=== PATIENT | female | born 1995 | race Caucasian/White ===

== ENCOUNTER 2020-01-17 00:08 | Day surgery (SDC) | payer MEDICAID, SELFPAY ==
[2020-01-15 12:10] VITALS: BMI 25.7
--- NOTE | 2020-01-15 17:25 | HP_ITS ---
DATE OF SERVICE: 01/17/2020 Surgery is scheduled for January 17, 2020. HISTORY OF PRESENT ILLNESS: The patient is 24-year-old, G1, who would be at about 12-13 weeks gestation based on last menstrual period of October 14. She was diagnosed with a missed on ultrasound about a week ago and has opted for suction D and C. She has had no bleeding control period other than spotting a few weeks after her period and she has no pain, no physical complaints. MEDICAL HISTORY: Scoliosis. MEDICATIONS: None. ALLERGIES: NO KNOWN DRUG ALLERGIES. SURGICAL HISTORY: Negative. SOCIAL HISTORY: Negative for tobacco, alcohol, or drug use. OBSTETRIC HISTORY: G1. Her only is her current . GYNECOLOGIC HISTORY: Negative for abnormal Pap or STD. FAMILY HISTORY: Negative for any genetic disorders. REVIEW OF SYSTEMS: Negative. PHYSICAL EXAMINATION: VITAL SIGNS: She is 5 feet 5 inches, weight is 154 pounds. Blood pressure 115/79. GENERAL: No apparent distress. HEART: Regular rate and rhythm. LUNGS: Clear to auscultation. ABDOMEN: Soft, nontender, nondistended. EXTREMITIES: Nontender with no edema. DIAGNOSTIC DATA: Ultrasound shows 10-week irregular gestational sac with no fetus. ASSESSMENT AND PLAN: G1 with an embryonic gestation or missed . She has opted and signed consent for suction dilation and curettage after the risks, benefits, complications, and alternatives were discussed. 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 We discussed the possible implications for future . We also do not know her blood type, so we need to check that the day of surgery and give RhoGAM if she is Rh negative. D I MT: Priya
[2020-01-17] MEDS: LACTATED RINGERS 1,000 ML 30 ML IV CONT ×2 (06:30→09:01)
[2020-01-17 07:00] VITALS: BP 108/68; PULSE 78; RESP 18; TEMP 37.1; O2SAT 100
--- NOTE | 2020-01-17 07:20 | WPDANESEPPF ---
Anes - Initial Pre Proc Eval Procedure: Operation Date: 01/17/20 08:15 Proposed Procedures p Suction Dilatation and Curettage - Kim Harris MD The patient is 24-year-old, G1, who would be at about 12-13 weeks gestation based on last menstrual period of October 14. She was diagnosed with a missed on ultrasound about a week ago and has opted for suction D and C. Date/Time: 01/17/20 07:20 Surgeon: Kim Harris MD Pre Op Diagnosis: missed AB Patient Data Age: 24 Gender: F Height: 1.65 m Weight: 69.7 kg Last Vital Signs Temp 37.1 C 01/17/20 07:00 Pulse 78 01/17/20 07:00 Resp 18 01/17/20 07:00 BP 108/68 01/17/20 07:00 Pulse Ox 100 01/17/20 07:00 Allergies Allergy/AdvReac Type Severity Reaction Status Date / Time No Known Allergies Allergy Verified 01/17/20 07:03 Home Medications Medication Instructions Recorded Confirmed Type No Home Medications 01/15/20 01/17/20 History Patient hx anesthesia problems: none Family hx anesthesia problems: none [facility], [facility] Past Medical History Medical History (Updated 01/17/20 @ 07:21 by Toño Vyas MD) Scoliosis Anes - Eval Final PreProcedure Day of Procedure 01/17/20 07:20 Patient weight: overweight Heart: regular rate and rhythm Lungs: clear to auscultation and normal air movement Airway: Mallampati scale class II Neurological: alert and oriented Last oral intake: >/= 8 hours ASA classification: II Emergent: no Anesthetic plan: proceed Anesthesia type and monitoring: general GIVS Informed Consent: The patient's anesthetic plan and its attendant risks and benefits were discussed with the patient/family/POA. Questions were solicited and answers provided to the satisfaction of the patient/family/POA.
--- NOTE | 2020-01-17 07:39 | WPDHPUPDATE1 ---
History and Physical Update Update Date/Time: 01/17/20 07:39 History and Physical has been reviewed, including an updated exam of the patient. There are NO changes in the patient's condition. Risks, benefits, and alternatives have been discussed and questions answered. Patient agrees to proceed with procedure.
--- NOTE | 2020-01-17 08:19 | SUR.OPER ---
ebl 100ml
[2020-01-17 08:31] VITALS: BP 104/64; PULSE 70; RESP 14; O2SAT 100
--- NOTE | 2020-01-17 08:31 | PM.OP ---
Procedure Note - Brief Procedure Note - Brief Date of procedure: 01/17/20 Pre-op diagnosis: missed AB Post-op diagnosis: same Procedure performed: Suction D&C Anesthesia: MAC Surgeon: Kim Harris MD Estimated blood loss (mL): 100 Drains: No Packing: No Pathology: yes Complications: No immediate complications Condition: stable Disposition: PACU Findings: Moderate amounts POCs
[2020-01-17 09:00] VITALS: BP 108/65; PULSE 68; O2SAT 100
[2020-01-17 09:30] VITALS: BP 120/66; PULSE 71
--- NOTE | 2020-01-17 12:28 | OP_ITS ---
DATE OF PROCEDURE: 01/17/2020 PREOPERATIVE DIAGNOSIS: Missed . POSTOPERATIVE DIAGNOSIS: Missed . PROCEDURE PERFORMED: Suction dilation and curettage. SURGEON: Kim Harris M.D. ANESTHESIA: Conscious sedation. ESTIMATED BLOOD LOSS: 100 mL. COMPLICATIONS: None. FINDINGS: Moderate amounts of products of conception. INDICATIONS: A 24-year-old, G1, who would be about 13 weeks' gestation based on last menstrual period. She was diagnosed with missed on ultrasound a week or so ago and was counseled about options. She opted and signed consent for suction dilation and curettage after the risks, benefits, complications, and alternatives were discussed. DESCRIPTION OF PROCEDURE: For the procedure, she was taken to the operating room where she was sedated and placed in the dorsal lithotomy position. A speculum was placed in the vagina. The anterior lip of the cervix was grasped with a single-tooth tenaculum. The cervix was dilated. At one point, the tenaculum did tear through the anterior lip of the cervix, so it was replaced with an Allis clamp. She was dilated up to a 10 Hegar dilator, so a #9 curved suction curette was used to evacuate the contents of the uterus. Sharp curettage was performed with a small amount of tissue still obtained, so another couple passes were made with the suction curette. Another gentle curettage was done with a metal curette with no further tissue obtained and the endometrium felt gritty, so one last pass was made with the suction curette with minimal blood and no tissue obtained. The Allis clamp was removed from the anterior lip of the cervix. The laceration site was bleeding slightly, so pressure was held with ring forceps. Cervix was still bleeding slightly, so one [id number]-it-[id number] 2-0 Vicryl suture was placed and then excellent hemostasis was obtained. All instruments were removed from the vagina. She tolerated the procedure well. Sponge, lap, needle, and instrument counts were correct x2 and she was taken to the recovery room in stable condition. D I MT: Priya
== END 2020-01-17 09:52 | disposition home or self-care (01) ==
PROVIDERS: Visit Provider Obstetrics & Gynecology
PROC: (CPT 59820; principal; 2020-01-17 08:15)
DX: O02.1 Missed abortion (principal)
CPT/HCPCS: 59820; 36415; 85461; 88305; A9270; J0131; J1100; J1885; J2250; J2405; J2704; J3010; J7120

== ENCOUNTER 2021-02-09 09:50 | Outpatient (RCR) | payer OTHER, SELFPAY ==
[2021-02-09 10:48] VITALS: BP 108/73; PULSE 102
== END 2021-02-27 07:52 | disposition home or self-care (01) ==
LOC: ANHOBOP 09:50
PROVIDERS: PCP Advanced Practice Midwife; Visit Provider Obstetrics & Gynecology
DX: O24.419 Gestational diabetes mellitus in pregnancy, unspecified control (principal); Z3A.36 36 weeks gestation of pregnancy
CPT/HCPCS: 59025

== ENCOUNTER 2021-02-25 12:12 | Outpatient (CLI) | payer OTHER, SELFPAY ==
[2021-02-25 12:35] LABS: Hematocrit 36.4 % (37.0-47.0); Mean Corpuscular Volume 94.1 fl (80-100); Mean Platelet Volume 11.4 fl (7.4-10.4); Platelet Count Result 190 k/mm3 (150-375); Red Blood Count 3.87 M/mm3 (4.2-5.4); Red Cell Distribution Width 13.8 % (11.5-14.5); White Blood Count 7.1 K/mm3 (4.5-10.0)
[2021-02-26 06:49] LABS: Rapid Plasma Reagin Non-Reactive (NonReactive)
== END 2021-02-25 12:13 | disposition home or self-care (01) ==
PROVIDERS: Visit Provider Obstetrics & Gynecology
DX: O32.1XX0 Maternal care for breech presentation, not applicable or unspecified (principal); Z3A.00 Weeks of gestation of pregnancy not specified
CPT/HCPCS: 36415; 85027; 86592; 86850; 86900; 86901

== ENCOUNTER 2021-02-26 11:32 | Inpatient (IN) | payer OTHER, SELFPAY ==
--- NOTE | 2021-02-11 14:56 | PC.NURSE ---
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
[2021-02-26] VITALS (55 sets, daily range): BP systolic 97–127; BP diastolic 53–88; PULSE 57–93; RESP 16–18; TEMP 36.1–36.6; O2SAT 96–100; BMI 30.8
[2021-02-26 12:47] LABS: Glucose Point of Care 91 mg/dl (65-105)
[2021-02-26] MEDS: LACTATED RINGERS 1,000 ML 125 ML IV CONT (12:56)
--- NOTE | 2021-02-26 13:09 | LDADM ---
This patient, Azeb Grace, was admitted to [facility] Post [facility] on 02/26/21 at 11:32. Plans for section, pain management and were discussed with patient. Patient/family oriented to hospital policies and general routines including ID bracelet, bed and alarms, visiting hours, pain management, procedures, bathroom and other care routines, personal items, smoking policy, room service/diet and guest tray routines, infant security routines, call light and visiting hours. Patient/Family are encouraged to report perceived risks to care and to ask questions if they do not understand what they are told or what they should do. See OBIX for further documentation.
[2021-02-26] MEDS: LACTATED RINGERS 1,000 ML 999 ML IV CONT (13:15)
--- NOTE | 2021-02-26 13:18 | PN_ITS ---
This report was moved to the correct visit, [id number] on 02/26/21. Original report was signed by Toño Vyas MD on 02/26/211319. Anes - Initial Pre Proc Eval Procedure: Operation Date: 02/26/21 12:00 Proposed Procedures p Repeat Section - Nicolle Adam MD Date/Time: 02/26/21 13:18 Surgeon: Nicolle Adam MD Pre Op Diagnosis: prior csection, breech Patient Data Age: 26 Gender: F Height: Weight: Allergies Allergy/AdvReac Type Severity Reaction Status Date / Time No Known Allergies Allergy Verified 01/17/20 07:03 Home Medications Medication Instructions Recorded Confirmed Type hydrocodone-acetaminophen [[place]] 1 tablet PO Q4H PRN #10 tablet 01/17/20 Rx ibuprofen 600 mg PO Q6H PRN #60 tablet 01/17/20 Rx Patient hx anesthesia problems: none Family hx anesthesia problems: none PMFSH Past Medical History Medical History (Updated 01/17/20 @ 07:21 by Toño Vyas MD) Scoliosis Anes - Eval Final PreProcedure Day of Procedure 02/26/21 13:18 Patient weight: overweight Heart: regular rate and rhythm Lungs: clear to auscultation and normal air movement Airway: Mallampati scale class II Neurological: alert and oriented Last oral intake: >/= 8 hours ASA classification: II Emergent: no Anesthetic plan: proceed Anesthesia type and monitoring: regional spinal Informed Consent: The patient's anesthetic plan and its attendant risks and benefits were discussed with the patient/family/POA. Questions were solicited and answers provided to the satisfaction of the patient/family/POA. This dictation may have been done utilizing a voice recognition system. Attempts have been made to correct errors. However, there may be uncorrected grammatical, spelling, and recognition errors present. Report Initialized date/time: Toño Vyas MD 02/26/211319 Electronically signed by: Toño Vyas MD 02/26/211319 [facility]
--- NOTE | 2021-02-26 13:25 | HP_ITS ---
This report was moved to the correct visit, [id number] on 02/26/21. Original report was signed by Nicolle Adam MD on 02/26/21 1326. History and Physical Update Update Date/Time: 02/26/21 13:25 History and Physical has been reviewed, including an updated exam of the patient. There are NO changes in the patient's condition. Risks, benefits, and alternatives have been discussed and questions answered. Patient agrees to proceed with procedure. This dictation may have been done utilizing a voice recognition system. Attempts have been made to correct errors. However, there may be uncorrected grammatical, spelling, and recognition errors present. Report Initialized date/time: Nicolle Adam MD 02/26/21 / 1326 Electronically signed by: Nicolle Adam MD 02/26/21 1326 [facility]
--- NOTE | 2021-02-26 13:26 | HP_ITS ---
This report was moved to the correct visit, [id number] on 02/26/21. Original report was signed by Nicolle Adam MD on 02/26/21 1330. H&P: HPI History of Present Illness Date/Time: 02/26/21 13:26 this patient is a 26-year-old 2 para 0 at term with a breech position and infant. We agreed to perform delivery. The patient understands the procedure. She understands the risks. She understands that injuries may occur that result in hospitalization, more surgery, severe illness. She understands risk there is infection and hemorrhage. She denies any nausea, vomiting, fever, chills. She denies any headache or blurry vision. She denies any chest pain shortness of breath. She denies any contractions, loss of fluid, vaginal bleeding Chief Complaint: Breech, term Review of Systems Constitutional: Constitutional: Reports no additional constitutional complaints, Denies fatigue, Denies headache(s), Denies lethargy and Denies weakness Eyes: Eyes: Reports no additional eye complaints, Denies blurry vision and Denies photophobia ENT: Reports as per HPI, Denies headache(s) and Denies neck pain Cardiovascular: Cardiovascular: Denies chest pain, Denies diaphoresis, Denies leg edema, Denies palpitations and Denies dyspnea Respiratory: Respiratory: Denies hemoptysis, Denies dyspnea and Denies wheezing Gastrointestinal: Gastrointestinal: Denies abdominal pain, Denies melena, Denies bloating, Denies hematochezia, Denies nausea and Denies vomiting Genitourinary: Genitourinary: Reports no additional female genitourinary complaints Musculoskeletal: Musculoskeletal: Denies joint swelling, Denies neck pain, Denies numbness and Denies stiffness Neurologic: Denies Abnormal speech present, Denies confusion, Denies headache(s), Denies numbness and Denies weakness Psychiatric: Psychiatric: Denies anxiety, Denies confusion, Denies depression, Denies homicidal ideation and Denies suicidal ideation Endocrine: Endocrine: Denies fatigue and Denies palpitations Allergic/Immunologic: Allergic/Immunologic: Denies wheezing PMFSH Past Medical History Medical History (Updated 02/26/21 @ 13:29 by Nicolle Adam MD) Scoliosis Meds Home Medications and Allergies Home Medications Medication Instructions Recorded Confirmed Type hydrocodone-acetaminophen [[place]] 1 tablet PO Q4H PRN #10 tablet 01/17/20 Rx ibuprofen 600 mg PO Q6H PRN #60 tablet 01/17/20 Rx Allergies Allergy/AdvReac Type Severity Reaction Status Date / Time No Known Allergies Allergy Verified 01/17/20 07:03 Exam Const: General: healthy appearing, comfortable and no acute distress; No confusion Orientation/consciousness: No confusion Eyes: Direct Ophthalmoscopy: No photophobia Resp: Auscultation: clear to auscultation bilaterally, no rales, no rhonchi and no wheezes Cardio: Rate: regular rate Heart sounds: no click, no murmurs and no rubs GI: Inspection: non-distended GI Palp: No abdominal tenderness Auscultation: normal bowel sounds Neuro: General: No confusion Speech: No Abnormal speech present Extrem: General: normal to inspection, no pedal edema and no calf tenderness Assessment and Plan Assessment and plan (1) Term : Code(s): Z34.90 - Encounter for supervision of normal , unspecified, unspecified trimester Status: Acute (2) Breech presentation: Code(s): O32.1XX0 - Maternal care for breech presentation, not applicable or unspecified Status: Acute Assessment and Plan: This patient is a 26-year-old 2 p
[2021-02-26] MEDS: ceFAZolin 2 GM/D5W 50 ML 2 GM/50 ML BAG IVPB (14:49)
[2021-02-26] MEDS: KETOROLAC 30 MG/ML VIAL (*BKC) IV PUSH ×2 (15:45→22:46)
--- NOTE | 2021-02-26 15:46 | P.OP_ITS ---
Procedure Note - Detailed Date of Procedure 02/26/21 Pre-op Diagnosis Term . Breech Post-op Diagnosis same Procedure Performed Low-transverse section Surgeon Nicolle Adam MD Anesthesia spinal Findings Breech Infant, Normal gestational maternal anatomy, average size , normal Apgars. Description of Procedure The patient was taken the operating room. She was prepped and draped in dorsal supine position with a leftward tilt. This was done after spinal anesthetic was applied. A low-transverse skin incision was made and carried down till of the fascia with the knife. The fascial incision was made with the knife. The fascial incision was extended laterally with Dupont scissors. The fascia was tented upward superiorly and inferiorly the rectus muscles were dissected off bluntly. The rectus muscles were the midline. The preperitoneal fat and peritoneum were dissected open bluntly at the superior aspect of the rectus muscles. The peritoneal incision was extended superior and inferior with good position of bladder. The uterine incision was made with a scalpel down to the level of the amniotic cavity. The amniotic cavity was entered bluntly. The infant was delivered. The cord was clamped and cut and t he was handed off to waiting pediatric staff. Cord bloods were obtained. The placenta was removed manually. The uterus was exteriorized. The uterus was cleared of all clots, debris and membranes. The uterus was closed in 0 Vicryl running lock fashion. An imbricating over a was placed along the incision line as well. The uterus was returned to the abdomen. The gutters were cleared of all clots and debris. The fascia was closed with 0 Vicryl running fashion. The subcutaneous tissue was irrigated pinpoint bleeders were cauterized. The skin was closed with subcuticular absorbable nicolas. The skin incision line was covered with glue. The patient tolerated the procedure well. She has taken recovery room in stable condition. Sponge lap and needle counts were correct x2. Complications No immediate complications Condition stable Disposition PACU
[2021-02-26] MEDS: OXYTOCIN 30 UNITS/NS 500 ML 30 UNITS/500 ML BAG 125 UNITS IV CONT (17:00)
[2021-02-26] MEDS: ONDANSETRON INJ 4 MG/2 ML VIAL IV PUSH (18:21)
[2021-02-26] MEDS: diphenhydrAMINE HCl INJ 50 MG/ML VIAL 12.5 MG IV PUSH (20:14)
[2021-02-26] MEDS: KCL 20 MEQ/D5/0.45% SOD CHL 1,000 ML 125 ML IV CONT (22:47)
[2021-02-27 00:48] VITALS: BP 121/70; PULSE 85; RESP 18; TEMP 36.6; O2SAT 98
[2021-02-27 04:20] VITALS: BP 108/73; PULSE 73; RESP 18; TEMP 36.4; O2SAT 100
[2021-02-27 04:55] LABS: Basophils Percent Auto 0.2 % (0.2-1.2); Eosinophils Percent Auto 0.4 % (0-4.4); Hematocrit 31.7 % (37.0-47.0); Hemoglobin 10.3 g/dL (12.0-15.0); Immature Granulocyte Absolute 0.03 K/mm3 (0.00-0.031); Immature Granulocyte Percent A 0.3 % (0-0.5); Lymphocytes Absolute Auto 1.11 K/mm3 (0.9-3.2); Lymphocytes Percent Auto 12.1 % (18.3-44.2); Mean Corpuscular HGB Conc 32.5 g/dl (32-36); Mean Corpuscular Hemoglobin 30.7 pg (26-34); Mean Corpuscular Volume 94.6 fl (80-100); Mean Platelet Volume 11.8 fl (7.4-10.4); Monocytes Absolute Auto 0.5 K/mm3 (0.1-0.6); Monocytes Percent Auto 5.8 % (2.6-8.5); Neutrophils Absolute Auto 7.5 K/mm3 (1.3-6.7); Neutrophils Percent Auto 81.2 % (45.5-73.1); Platelet Count Result 164 k/mm3 (150-375); Red Blood Count 3.35 M/mm3 (4.2-5.4); Red Cell Distribution Width 13.7 % (11.5-14.5); White Blood Count 9.2 K/mm3 (4.5-10.0)
[2021-02-27] MEDS: diphenhydrAMINE HCl INJ 50 MG/ML VIAL 12.5 MG IV PUSH (05:25)
[2021-02-27] MEDS: KETOROLAC 30 MG/ML VIAL (*BKC) IV PUSH (05:25)
[2021-02-27] MEDS: SIMETHICONE 80 MG TAB.CHEW PO ×4 (05:25→22:00)
--- NOTE | 2021-02-27 05:25 | PC.NURSE ---
this nurse administered medications at 0525 during Medication Administration Error: MIS is down : 30 mg Keterolac IV Push for pain rated 12/20 12.5 mg Diphenhydramine for itching--second dose of two 80 mg Simethicone for gas
--- NOTE | 2021-02-27 05:49 | PC.NURSE ---
Medication Administration charting is back online, and I have charted the medications I administered at 0597
--- NOTE | 2021-02-27 07:37 | PM.OBPNVD ---
OB - PN: Subj Subjective Date/time seen: 02/27/21 07:37 Patient comments: no complaints baby status: doing well OB - PN: Obj Data Labs CBC & Chem 7: 02/27/21 04:28 Labs: Laboratory Results - last 24 hr 02/26/21 02/27/21 12:35 04:28 WBC 9.2 RBC 3.35 L Hgb 10.3 L Hct 31.7 L MCV 94.6 MCH 30.7 MCHC 32.5 RDW 13.7 Plt Count 164 MPV 11.8 H Immature Gran % (Auto) 0.3 Neut % (Auto) 81.2 H Lymph % (Auto) 12.1 L [place] % (Auto) 5.8 Eos % (Auto) 0.4 Baso % (Auto) 0.2 Lymph # (Auto) 1.11 [place] # (Auto) 0.5 Eos # (Auto) 0.0 Baso # (Auto) 0.0 Abs Immat Gran (auto) 0.03 Absolute Neuts (auto) 7.5 H Absolute Nucleated RBC 0.0 Nucleated RBC % 0.0 POC Capillary Glucose 91 OB - PN A/P Plan day: 1 Plan: routine care Time Spent With Patient Time: Total time spent is greater than 50% in coordination of care (as documented) at patient's floor/unit and/or counseling patient: Review of Systems Review of Systems: All systems reviewed & are unremarkable except as noted in HPI and below Exam Narrative: Exam Narrative: incision CDI Const: General: cooperative Nutritional Appearance: average body habitus Orientation/consciousness: patient oriented x3 Psych: Affect: normal affect Attitude: cooperative Thought process: Normal thought process present Thought content: Yes Normal thought content present Insight: Good insight present (Psych) Judgement: Good judgement present (Psych)
[2021-02-27 08:10] VITALS: BP 106/71; PULSE 81; RESP 16; TEMP 36.9; O2SAT 100
[2021-02-27] MEDS: DOCUSATE SODIUM 100 MG CAPSULE PO ×2 (08:34→17:38)
[2021-02-27] MEDS: MULTIVIT/MIN/PREN/FOL AC/IRON TABLET 1 TAB PO (08:34)
[2021-02-27] MEDS: HYDROcodone/acetaminophen (*CRX) 5-325 MG TABLET 1 TAB PO ×3 (08:35→17:38)
--- NOTE | 2021-02-27 08:56 | WPDANLDPN2 ---
Anes-Prog Note L&D Date/Time: 02/27/21 08:56 Comfortable throughout: section Neuraxial method: spinal Epidural/Spinal procedure site: clean & non-tender Neuro status: Neuro function grossly intact. Cardiovascular status: normal Respiratory status: normal Airway patency: baseline Mental status: baseline Post-Op hydration status: normal Vital Signs: Last Vital Signs Temp 36.4 C 02/27/21 04:20 Pulse 73 02/27/21 04:20 Resp 18 02/27/21 04:20 BP 108/73 02/27/21 04:20 Pulse Ox 100 02/27/21 04:20 Pain score (VAS): 0 I/O: Intake & Output 02/26/21 02/27/21 02/27/21 23:59 07:59 15:59 Intake Total 820 3240 Output Total 1050 2700 Balance -230 540 Post-procedural complaints: none Patient feedback: Patient satisfied with anesthetic care.
--- NOTE | 2021-02-27 08:56 | WPDANLDNPN2 ---
Anes-Prog Note L&D-Neuraxial Date/Time: 02/27/21 08:56 Neuraxial medications: intrathecal PF morphine Opiod-related complaints: none Patient feedback: Patient satisfied with post-operative pain management.
[2021-02-27 12:02] VITALS: BP 107/69; PULSE 87; RESP 16; TEMP 36.6; O2SAT 99
[2021-02-27] MEDS: IBUPROFEN 600 MG TABLET PO ×2 (14:23→22:00)
[2021-02-27 20:28] VITALS: BP 97/61; PULSE 82; RESP 16; TEMP 36.6; O2SAT 99
[2021-02-27] MEDS: HYDROcodone/acetaminophen (*CRX) 10-325 MG TABLET 1 TAB PO (22:00)
[2021-02-28] MEDS: HYDROcodone/acetaminophen (*CRX) 10-325 MG TABLET 1 TAB PO (00:41)
[2021-02-28] MEDS: HYDROcodone/acetaminophen (*CRX) 5-325 MG TABLET 1 TAB PO ×2 (03:44→10:15)
[2021-02-28] MEDS: SIMETHICONE 80 MG TAB.CHEW PO (03:44)
[2021-02-28] MEDS: IBUPROFEN 600 MG TABLET PO ×2 (03:45→10:16)
[2021-02-28 08:00] VITALS: BP 108/71; BP 112/75; PULSE 73; PULSE 89; RESP 18; TEMP 36.8; TEMP 36.9; O2SAT 98
--- NOTE | 2021-02-28 09:46 | PM.OBPNVD ---
OB - PN: Subj Subjective Date/time seen: 02/28/21 09:46 Patient comments: no complaints, pain well controlled, tolerating diet and flatus present baby status: doing well OB - PN: Obj Data Labs CBC & Chem 7: 02/27/21 04:28 OB - PN A/P Plan day: 2 Plan: routine care and discharge home (Follow up in 1 week) Time Spent With Patient Time: Total time spent is greater than 50% in coordination of care (as documented) at patient's floor/unit and/or counseling patient: Time with patient: less than 15 minutes Review of Systems Review of Systems: All systems reviewed & are unremarkable except as noted in HPI and below Exam Narrative: Exam Narrative: Fundus firm. Vaginal flow controlled. Incision dry and intact. Negative homans. No redness, warmth, or pain of lower ext. Const: General: comfortable Chest: Breast/axilla inspection: normal inspection of the breasts Resp: Effort & Inspection: normal respiratory effort Auscultation: clear to auscultation bilaterally Cardio: Rate: regular rate GI: GI Palp: Yes Soft to palpation Psych: Appearance: grossly normal Affect: normal affect Attitude: cooperative Thought content: Yes Normal thought content present Judgement: Good judgement present (Psych)
[2021-02-28] MEDS: DOCUSATE SODIUM 100 MG CAPSULE PO (10:15)
[2021-02-28] MEDS: MULTIVIT/MIN/PREN/FOL AC/IRON TABLET 1 TAB PO (10:16)
[2021-03-02 09:06] VITALS: BP 115/78; PULSE 88; RESP 20; TEMP 37.1; O2SAT 100
--- NOTE | 2021-03-22 18:56 | PM.OBDSVD ---
DS: Admitting Diagnosis Admitting Diagnosis Admitting Diagnosis: term , breech DS: Discharge Diagnosis Discharge Diagnosis (1) Term : Code(s): Z34.90 - Encounter for supervision of normal , unspecified, unspecified trimester Status: Acute (2) Breech presentation: Code(s): O32.1XX0 - Maternal care for breech presentation, not applicable or unspecified Status: Acute OB - DS: Summary OB Procedures : None OB Procedures Intrapartum: OB Procedures: : None Peripartum Data Procedures: Procedures Operation Date: 02/26/21 13:30 Actual Procedure Side Surgeon p Section Nicolle Adam MD Time Spent with Patient Time attestation: Total time spent providing and/or coordinating discharge services: Discharge Plan Discharge Attending physician on discharge: Nicolle Adam Consulting providers: Asha Kowalski ; Sinai Lea ; Toño Vyas Discharging Clinician: Sinai Lea Patient Disposition: Home, Self-Care Activity: no driving and pelvic rest Diet: as tolerated Wound Care Instructions: follow printed instructions Discharge Instructions: Education: Mom and Baby Guide Given to: Mother Follow-Up: Call your delivering provider's office for an appointment to be seen in: Call for appointment Mom and baby should come to the [facility] for the follow-up appointment. Appointment Date/Time: March 02, 2021 at 9:00 am What to expect at your follow-up visit: Physical Assessment Call [phone] if you are unable to keep your appointment time. BREAST CARE: * Wear a snug supportive bra. * For engorgement discomfort: Breast Feeding: * Apply warm moist washcloths * Express milk as needed to relieve engorgement * Wear loose clothing * For sore nipples: * Identify correct latch-on * Apply warm moist washcloths before and after nursing * Air dry nipples after nursing * May apply Lansinoh cream to nipples ABDOMINAL INCISION: * Allow incision to air dry * Do NOT use lotions for powders on your incision * When showering, allow soap and water to run over the incision, but do not wash incision PERINEAL CARE: * Until bleeding stops, use your rah bottle after urinating * Change your pad frequently throughout the day * No tub baths until seen by your physician - You may shower ACTIVITY: * Rest as much as possible. * Do not exercise or lift anything heavier than your baby (such as laundry or other children.) * Avoid stairs or driving as much as possible. * Do not put anything into the vagina. No douching, tampons, or sexual activity until seen by physician. NOTIFY PHYSICIAN IF YOU HAVE ANY QUESTIONS OR IF ANY OF THE FOLLOWING SYMPTOMS OCCUR: * If your incision becomes red, swollen, or more painful than what you have experienced in the hospital. * If your vaginal bleeding becomes foul smelling. * If your vaginal bleeding becomes more heavy than a period or if your bleeding changes from pink to bright red. However, you may pass an occasional walnut-sized clot once or twice for the first week . * If you experience a sharp, shooting pain in you calves. * If you discover a hard, reddened area on your breast or if you experience flu-like symptoms. DIET: * Eat regular, well-balanced meals. * Drink plenty of fluids daily. If , drink to thirst. Patient Instructions: Antibiotic Form Stand Alone Forms: General Discharge Information Follow-up/Referrals: Nicolle Adam MD [Physician] - Call for Appointment Discharge Medications: New docusate sodium 100 mg Capsule 100 mg PO BID Qty: 30 RF: 0 ibuprofen 600 mg Tablet 600 mg PO Q6H PRN (Reason: Cramping) Qty: 20 RF: 0 hydrocodone-acetaminophen 5-325 mg tablet 1 tablet PO Q4H PRN (Reason: pain) Qty: 20 RF: 0 Continued prenat.vits,jeffrey,[id number] Tab
== END 2021-02-28 14:07 | disposition home or self-care (01) | DRG 540 ==
LOC: ANHOBPP 11:37 → ANHLDR 16:59 → ANHOB2 18:34
PROVIDERS: Admitting Provider Obstetrics & Gynecology; Visit Provider Obstetrics & Gynecology
PROC: 10D00Z1 Extraction of Products of Conception, Low, Open Approach (ICD-10-PCS; CPT 59514; principal; 2021-02-26 13:30)
DX: O32.1XX0 Maternal care for breech presentation, not applicable or unspecified (principal); O24.429 Gestational diabetes mellitus in childbirth, unspecified control; O34.03 Maternal care for unspecified congenital malformation of uterus, third trimester; Q51.3 Bicornate uterus; Z3A.39 39 weeks gestation of pregnancy; Z37.0 Single live birth
CPT/HCPCS: 36415; 82948; 85025; A9270; J0131; J0690; J1200; J1885; J2274; J2370; J2405; J2590; J3480; J7120

== ENCOUNTER 2022-04-13 11:57 | Outpatient (RCR) | payer OTHER, SELFPAY ==
[2022-02-08 08:34] VITALS: BP 107/74; PULSE 107
--- NOTE | ~2022-04-13 | US_ITS ---
EXAMINATION: US OB limited w BPP DATE: 04/13/2022 13:45 INDICATION: Nonreactive nonstress test during third trimester . TECHNIQUE: Real-time pelvic ultrasound was performed. The interpreting radiologist was not present fo r the study. COMPARISON: None. FINDINGS: There is a single living fetus in vertex presentation. The placenta is anterior. heart rate is 138 beats per minute (bpm). Mildly increased amniotic fluid index of 21.1 cm (5th%-95%: 7.0-19.4 cm at 41 weeks estimated gestational age). Biophysical profile performed by the technologist: breathing (30 sec sustained breathing in 30 minutes): 2 out of 2 movement (3 gross body movements in 30 minutes): 2 out of 2 tone (one episode of azhjdoj-afqjcbdgh-bvpdpjx limb movement): 2 out of 2 Amniotic fluid pocket (2 cm): 2 out of 2 Total score: 8 out of 8 IMPRESSION: 1. Single living fetus in vertex presentation with heart rate of 138 bpm. 2. Biophysical profile 8 out of 8. Line 3. Mildly increased amniotic fluid index of 21.1 cm. Reviewed, dictated and finalized at location A.
== END 2022-05-09 23:59 | disposition home or self-care (01) ==
LOC: ANHOBOP 11:57
PROVIDERS: Visit Provider Obstetrics & Gynecology
DX: O36.5930 Maternal care for other known or suspected poor fetal growth, third trimester, not applicable or unspecified (principal); O43.193 Other malformation of placenta, third trimester; Z3A.32 32 weeks gestation of pregnancy
CPT/HCPCS: 59025; 76815; 76819

== ENCOUNTER 2022-04-15 17:50 | Inpatient (IN) | payer OTHER, SELFPAY ==
--- NOTE | 2022-03-18 14:27 | PC.NURSE ---
Verified with OR schedule and Patient--C?S on 03/25/22 at 0730 Patient given requisition for pre-op labs on 03/24/22
[2022-04-15] VITALS (31 sets, daily range): BP systolic 98–125; BP diastolic 54–83; PULSE 80–119; RESP 12–18; TEMP 36.4–36.9; O2SAT 97–100; BMI 33.7
--- OUTSIDE RECORDS SUMMARY | 2022-04-15 18:00 | XMS_ITS | Encounter Summary ---
:1995 Author Reason for Visit None recorded. Assessment and Plan 1. Post-term ? non-stress test Discussion Note: None recorded.Patient educational handouts: No information available. Plan of Care Reminders Provider Appointments None recorded. ? ? Lab None recorded. ? ? Referral None recorded. ? ? Procedures None recorded. ? ? Surgeries None recorded. ? ? Imaging Non-stress Test 04/13/2022 [place] Medications Notes: Haven't started prenatals yet 1 Medications Administered None recorded. Vitals None recorded. Results Lab Results None recorded. Allergies Code Code System Name Reaction Severity Onset NKDA ? ? ? Problems Name Status Onset Date Source ? Active 10/01/2021 ? Group B Streptococcus Carrier Active 03/08/2022 ? Procedures Date Name Performed by ? 02/26/2021 Section (Surg) Information not available 01/17/2020 Dilation and Curettage Information not a vailable Notes: MAB 03/18/2022 Non-stress Test [place] [address] [place] [address] ([address]) 04/08/2022 Non-stress Test [place] [address] [place] [address] ([address]) 04/13/2022 Non-stress Test [place] Lori Mascorro
--- OUTSIDE RECORDS SUMMARY | 2022-04-15 18:00 | XMS_ITS ---
:1995 Author Care Team Providers Name Role Phone Manny Adam Primary Care Provider Unavailable Allergies Code Code System Name Reaction Severity Status Onset NKDA ? Medications Name Status Start Date Stop Date ? ? docusate sodium 100 mg capsule Completed ? 1 TAKE 1 CAPSULE BY MOUTH TWICE DAILY Erygel 2 % topical Completed ? 01/10/2020 APPLY A THIN LAYER TO THE AFFECTED AREA (S) BY TOPICAL ROUTE 2 TIMES PER DAY IN THE MORNING AND EVENING hydrocodone 5 mg-acetaminophen 325 mg tablet Completed ? 03/25/2021 TAKE 1 TABLET BY MOUTH EVERY 4 HOURS NEEDED FOR PAIN ibuprofen Completed ? 01/15/2020 ibuprofen 600 mg tablet Completed ? 03/25/20 TAKE 1 TABLET BY MOUTH EVERY 6 HOURS NEEDED FOR CRAMPING OneTouch Delica Plus Lancet 30 gauge Completed ? 03/25/2021 USE 4 LANCETS PER DAY TO TEST BLOOD SUGAR OneTouch Verio Flex Meter Completed ? 2020 DIRECTED OneTouch Verio test strips Completed ? 03/25 Completed ? 09/10/2021 Notes: Haven't started prenatals yet 1 Problems Name Status Onset Date Source ? Unknown 08/25/2020 ? Active 10/01/2021 ? Group B Streptococcus Carrier Active 03/08/2022 ? Procedures Date Name Performed by ? 02/26/2021 Section (Surg) Information not available 01/17/2020 Dilation and Curettage Information not a vailable Notes: MAB 01/10/2020 US, Obstetric, 1St Trimester [place]
--- OUTSIDE RECORDS SUMMARY | 2022-04-15 18:00 | XMS_ITS | Encounter Summary ---
:1995 Author Reason for Visit OB visit Assessment and Plan Assessment Note Patient is ___weeks . Discussed plan. 1. Routine care Discussion Note: None recorded.Patient educational handouts: No information available. Plan of Care Reminders Provider Appointments None recorded. ? ? Lab None recorded. ? ? Referral None recorded. ? ? Procedures None recorded. ? ? Surgeries None recorded. ? ? Imaging None recorded. ? ? Medications Notes: Haven't started prenatals yet 1 Medications Administered None recorded. Vitals Height Weight BMI Blood Pressure 5 ft 5 in 203 lbs 33.8 kg/m2 115/80 mm[Hg] Results Lab Results None recorded. Allergies Code Code System Name Reaction Severity Onset NKDA ? ? ? Problems Name Status Onset Date Source ? Active 10/01/2021 ? Group B Streptococcus Carrier Active 03/08/2022 ? Procedures Date Name Performed by ? 02/26/2021 Section (Surg) Information not available 01/17/2020 Dilation and Curettage Information not a vailable Notes: MAB 03/18/2022 Non-stress Test [place] [address] [place] [address] ([address]) Vaccine List None recorded. Social History Tobacco Smoking Status Never Smoker Do you have difficulty walking or climbing stairs? N
--- OUTSIDE RECORDS SUMMARY | 2022-04-15 18:00 | XMS_ITS | Encounter Summary ---
:1995 Author Reason for Visit OB visit OB [id number] EDC 04/01/2022 LMP 06/25/2021 Assessment and Plan Assessment Note Patient is 41___weeks . Discuss ed plan. 1. Routine care Discussion Note: None [...] ft 5 in 203 lbs 33.8 kg/m2 122/76 mm[Hg] Results Lab Results None recorded. Allergies Code Code System Name Reaction Severity Onset NKDA ? ? ? Problems Name Status Onset Date Source ? Active 10/01/2021 ? Group B Streptococcus Carrier Active 03/08/2022 ? Procedures Date Name Performed by ? 02/26/2021 Section (Surg) Information not available 01/17/2020 Dilation and Curettage Information not a vailable Notes: MAB 03/18/2022 Non-stress Test [place] [address] [place] [address] ([address]) 04/08/2022 Non-stress Test [place] Lori Azevedo
--- OUTSIDE RECORDS SUMMARY | 2022-04-15 18:00 | XMS_ITS | Encounter Summary ---
[...] BMI Blood Pressure 5 ft 5 in 202 lbs 33.6 kg/m2 110/73 mm[Hg] Results Lab Results None recorded. Allergies Code Code System Name Reaction Severity Onset NKDA ? ? ? Problems Name Status Onset Date Source ? Active 10/01/2021 ? Group B Streptococcus Carrier Active 03/08/2022 ? Procedures Date Name Performed by ? 02/26/2021 Section (Surg) Information not available 01/17/2020 Dilation and Curettage Information not a vailable Notes: [facility] 03/04/2022 US, Obstetric, Biophysical Profile + [place] love Non-stress Test [address] [place] [address] ([address]) 03/04/2022 Non-stress Test [place] [address]
--- OUTSIDE RECORDS SUMMARY | 2022-04-15 18:00 | XMS_ITS | Encounter Summary ---
:1995 Author Reason for Visit OB visit OB [id number] EDC 04/01/2022 LMP 06/25/2021 Assessment and Plan Assessment Note Patient is 38___weeks . Discuss ed plan. 1. Routine care [...] BMI Blood Pressure 5 ft 5 in 198 lbs 32.9 kg/m2 116/80 mm[Hg] Results Lab Results None recorded. Allergies Code Code System Name Reaction Severity Onset NKDA ? ? ? Problems Name Status Onset Date Source ? Active 10/01/2021 ? Group B Streptococcus Carrier Active 03/08/2022 ? Procedures Date Name Performed by ? 02/26/2021 Section (Surg) Information not available 01/17/2020 Dilation and Curettage Information not a vailable Notes: MAB 03/04/2022 US, Obstetric, Biophysical Profile + [place] Non-stress Test [address] [place] [address] ([address]) 03/04/2022 Non-stress Test [place]
--- OUTSIDE RECORDS SUMMARY | 2022-04-15 18:00 | XMS_ITS | Encounter Summary ---
:1995 Author Reason for Visit OB visit Assessment and Plan Assessment Note Patient is __41_weeks . Discuss ed plan. 1. Routine care [...] BMI Blood Pressure 5 ft 5 in 204 lbs 33.9 kg/m2 128/83 mm[Hg] Results Lab Results None recorded. Allergies Code Code System Name Reaction Severity Onset NKDA ? ? ? Problems Name Status Onset Date Source ? Active 10/01/2021 ? Group B Streptococcus Carrier Active 03/08/2022 ? Procedures Date Name Performed by ? 02/26/2021 Section (Surg) Information not available 01/17/2020 Dilation and Curettage Information not a vailable Notes: M[facility] 03/18/2022 Non-stress [place] [address] ([address]) 04/08/2022 Non-stress Test [address],
--- OUTSIDE RECORDS SUMMARY | 2022-04-15 18:00 | XMS_ITS | Encounter Summary ---
[...] None recorded. ? ? Imaging Non-stress Test 04/14/2022 [place] Medications Notes: Haven't started prenatals yet 1 [...] a vailable Notes: MAB 03/18/2022 Non-stress Test [place] [address] [place] [address] ([address]) 04/08/2022 Non-stress Test [place] [address] [place] [address] ([address]) 04/13/2022 Non-stress Test [place] Lori Mascorro
--- OUTSIDE RECORDS SUMMARY | 2022-04-15 18:00 | XMS_ITS | Encounter Summary ---
:1995 Author Reason for Visit None recorded. Assessment and Plan 1. History of gestational diabetes seb itus ? non-stress test Discussion Note: None recorded.Patient educational handouts: No information available. Plan of Care Reminders Provider Appointments None recorded. ? ? Lab None recorded. ? ? Referral None recorded. ? ? Procedures None recorded. ? ? Surgeries None recorded. ? ? Imaging Non-stress Test 04/08/2022 [place] Medications Notes: Haven't started prenatals yet 1 [...] a vailable Notes: MAB 03/18/2022 Non-stress Test [place] [address] [place] [address] ([address]) 04/08/2022 Non-stress Test [place] [address] [place] [address] ([address]) Vaccine List None recorded. Social History Tobacco Smoking Status Never
--- OUTSIDE RECORDS SUMMARY | 2022-04-15 18:01 | XMS_ITS | Encounter Summary ---
:1995 Author Reason for Visit None recorded. Assessment and Plan 1. growth restriction ? non-stress test Discussion Note: None recorded.Patient educational handouts: No information available. Plan of Care Reminders Provider Appointments None recorded. ? ? Lab None recorded. ? ? Referral None recorded. ? ? Procedures None recorded. ? ? Surgeries None recorded. ? ? Imaging Non-stress Test 02/11/2022 [place] Medications Notes: Haven't started prenatals yet 1 [...] Curettage Information not a vailable Notes: MAB 01/13/2022 US, Obstetric, Follow-up [place] [address] [place] [address] ([address]) 02/04/2022 Non-stress Test [place] [address] [place] [address] ([address]) 02/04/2022 US, Obstetric, Biophysical Profile + Cailin love
--- OUTSIDE RECORDS SUMMARY | 2022-04-15 18:01 | XMS_ITS | Encounter Summary ---
:1995 Author Reason for Visit None recorded. Assessment and Plan 1. Small for gestational age fetus ? US, obstetric, biophysical profile + non-stress test Discussion Note: None recorded.Patient educational handouts: No information available. Plan of Care Reminders Provider Appointments None recorded. ? ? Lab None recorded. ? ? Referral None recorded. ? ? Procedures None recorded. ? ? Surgeries None recorded. ? ? Imaging US, Obstetric, Biophysical Profile + [place] Non-stress Test Medications Notes: Haven't started prenatals yet 1 [...] and Curettage Information not a vailable Notes: [facility] 01/13/2022 US, Obstetric, Follow-up [place] [address] [place] [address] ([address]) 02/04/2022 Non-stress Test [place] [address] [place] [address] ([address])
--- OUTSIDE RECORDS SUMMARY | 2022-04-15 18:01 | XMS_ITS | Encounter Summary ---
[...] BMI Blood Pressure 5 ft 5 in 197 lbs 32.8 kg/m2 117/75 mm[Hg] Results Lab Results None recorded. Allergies Code Code System Name Reaction Severity Onset NKDA ? ? ? Problems Name Status Onset Date Source ? Active 10/01/2021 ? Group B Streptococcus Carrier Active 03/08/2022 ? Procedures Date Name Performed by ? 02/26/2021 Section (Surg) Information not available 01/17/2020 Dilation and Curettage Information not a vailable Notes: MAB 02/11/2022 Non-stress Test [place] [address] [place] [address] ([address]) 02/11/2022 US, Obstetric, Biophysical Profile + [place]ailin love Non-stress Test [address]
--- OUTSIDE RECORDS SUMMARY | 2022-04-15 18:01 | XMS_ITS | Encounter Summary ---
[...] BMI Blood Pressure 5 ft 5 in 190 lbs 31.6 kg/m2 126/79 mm[Hg] Results Lab Results None recorded. Allergies Code Code System Name Reaction Severity Onset NKDA ? ? ? Problems Name Status Onset Date Source ? Active 10/01/2021 ? Group B Streptococcus Carrier Active 03/08/2022 ? Procedures Date Name Performed by ? 02/26/2021 Section (Surg) Information not available 01/17/2020 Dilation and Curettage Information not a vailable Notes: MAB 01/13/2022 US, Obstetric, Follow-up [place] [address] [place] [address] ([address]) 02/04/2022 Non-stress Test [place] [address] [facility]
--- OUTSIDE RECORDS SUMMARY | 2022-04-15 18:01 | XMS_ITS | Encounter Summary ---
:1995 Author Reason for Visit None recorded. Assessment and Plan 1. Small for gestational age fetus ? non-stress test Discussion Note: None recorded.Patient educational handouts: No information available. Plan of Care Reminders Provider Appointments None recorded. ? ? Lab None recorded. ? ? Referral None recorded. ? ? Procedures None recorded. ? ? Surgeries None recorded. ? ? Imaging Non-stress Test 02/04/2022 [place] Medications Notes: Haven't started prenatals yet 1 [...] vailable Notes: MAB 01/13/2022 US, Obstetric, Follow-up [place] [address] [place] [address] ([address]) 02/04/2022 Non-stress Test [place] [address] [place] [address] ([address]) 02/04/2022 US, Obstetric, Biophysical Profile + Cailin love
--- OUTSIDE RECORDS SUMMARY | 2022-04-15 18:01 | XMS_ITS | Encounter Summary ---
[...] BMI Blood Pressure 5 ft 5 in 189 lbs 31.5 kg/m2 117/72 mm[Hg] Results Lab Results None recorded. Allergies Code Code System Name Reaction Severity Onset NKDA ? ? ? Problems Name Status Onset Date Source ? Active 10/01/2021 ? Group B Streptococcus Carrier Active 03/08/2022 ? Procedures Date Name Performed by ? 02/26/2021 Section (Surg) Information not available 01/17/2020 Dilation and Curettage Information not a vailable Notes: [facility] 01/13/2022 , Obstetric, Follow-up [place] [address] [place] [address] ([address]) Vaccine List None recorded. Social History Tobacco Smoking Status Never Smoker Do you have difficulty walking or climbing stairs? N
--- OUTSIDE RECORDS SUMMARY | 2022-04-15 18:01 | XMS_ITS | Encounter Summary ---
[...] BMI Blood Pressure 5 ft 5 in 193 lbs 32.1 kg/m2 118/72 mm[Hg] Results Lab Results None recorded. Allergies Code Code System Name Reaction Severity Onset NKDA ? ? ? Problems Name Status Onset Date Source ? Active 10/01/2021 ? Group B Streptococcus Carrier Active 03/08/2022 ? Procedures Date Name Performed by ? 02/26/2021 Section (Surg) Information not available 01/17/2020 Dilation and Curettage Information not a vailable Notes: MAB 02/04/2022 Non-stress Test [place] [address] [place] [address] ([address]) 02/04/2022 US, Obstetric, Biophysical Profile + [place]ailin love Non-stress Test [address]
--- OUTSIDE RECORDS SUMMARY | 2022-04-15 18:01 | XMS_ITS | Encounter Summary ---
:1995 Author Reason for Visit None recorded. Assessment and Plan 1. Poor growth affecting manageme nt ? US, obstetric, biophysical profile + non-stress test ? US, doppler, umbilical artery v elocimetry Discussion Note: None recorded.Patient educational handouts: No information available. Plan of Care Reminders Provider Appointments None recorded. ? ? Lab None recorded. ? ? Referral None recorded. ? ? Procedures None recorded. ? ? Surgeries None recorded. ? ? Imaging US, Obstetric, Biophysical Profile + [place] Non-stress Test ? US, Doppler, Umbilical Artery 02/18/2022 [place] Medications Notes: Haven't started prenatals yet 1 [...] a vailable Notes: MAB 02/04/2022 Non-stress Test [place] [address] [place] [address] ([address]) 02/04/2022 US, Obstetric, Biophysical Profile
--- OUTSIDE RECORDS SUMMARY | 2022-04-15 18:01 | XMS_ITS | Encounter Summary ---
:1995 Author Reason for Visit OB visit Assessment and Plan Assessment Note Patient is ___weeks . Discussed plan. 1. growth restriction Discussion Note: None recorded.Patient educational handouts: No [...] ft 5 in 189 lbs 31.5 kg/m2 110/67 mm[Hg] Results Lab Results None recorded. Allergies Code Code System Name Reaction Severity Onset NKDA ? ? ? Problems Name Status Onset Date Source ? Active 10/01/2021 ? Group B Streptococcus Carrier Active 03/08/2022 ? Procedures Date Name Performed by ? 02/26/2021 Section (Surg) Information not available 01/17/2020 Dilation and Curettage Information not a vailable Notes: MAB 01/13/2022 US, Obstetric, Follow-up [place] [address] [place] [address] ([address]) 02/04/2022 Non-stress Test [place] [address] [facility]
--- OUTSIDE RECORDS SUMMARY | 2022-04-15 18:01 | XMS_ITS | Encounter Summary ---
:1995 Author Reason for Visit OB visit OB [id number] EDC 04/01/2022 LMP 06/25/2021 Assessment and Plan Assessment Note Patient is 29___weeks . Discuss ed plan. 1. Routine care [...] BMI Blood Pressure 5 ft 5 in 187 lbs 31.1 kg/m2 124/77 mm[Hg] Results Lab Results None recorded. Allergies Code Code System Name Reaction Severity Onset NKDA ? ? ? Problems Name Status Onset Date Source ? Active 10/01/2021 ? Group B Streptococcus Carrier Active 03/08/2022 ? Procedures Date Name Performed by ? 02/26/2021 Section (Surg) Information not available 01/17/2020 Dilation and Curettage Information not a vailable Notes: MAB 12/16/2021 US, Obstetric, Follow-up [place] [address] [place] [address] ([address]) 01/13/2022 US, Obstetric, Follow-up [place] [address] [place]
--- OUTSIDE RECORDS SUMMARY | 2022-04-15 18:01 | XMS_ITS | Encounter Summary ---
[...] ? Imaging US, Obstetric, Biophysical Profile + [place] Non-stress Test Medications Notes: Haven't started prenatals [...] a vailable Notes: MAB 02/04/2022 Non-stress Test [place] [address] [place] [address] ([address]) 02/04/2022 US, Obstetric, [facility]ophysical Profile [facility] [address] [place] [address] (W
--- OUTSIDE RECORDS SUMMARY | 2022-04-15 18:01 | XMS_ITS | Encounter Summary ---
:1995 Author Reason for Visit nst [id number] EDC 04/01/2022 Assessment and Plan 1. Gestational diabetes mellitus, class A>1< ? non-stress test Discussion Note: None recorded.Patient educational handouts: No information available. Plan of Care Reminders Provider Appointments None recorded. ? ? Lab None recorded. ? ? Referral None recorded. ? ? Procedures None recorded. ? ? Surgeries None recorded. ? ? Imaging Non-stress Test 02/18/2022 [place] Medications Notes: Haven't started prenatals yet 1 Medications Administered None recorded. Vitals Height BMI 5 ft 5 in 32.1 kg/m2 Results Lab Results None recorded. Allergies Code Code System Name Reaction Severity Onset NKDA ? ? ? Problems Name Status Onset Date Source ? Active 10/01/2021 ? Group B Streptococcus Carrier Active 03/08/2022 ? Procedures Date Name Performed by ? 02/26/2021 Section (Surg) Information not available 01/17/2020 Dilation and Curettage Information not a vailable Notes: MAB 02/04/2022 Non-stress Test [place] [address] [place] [address] ([address]) 02/04/2022 US, Obstetric, Biophysical Profile + [place] love Non-stress Test [address] [place] [address]
--- OUTSIDE RECORDS SUMMARY | 2022-04-15 18:01 | XMS_ITS | Encounter Summary ---
[...] None recorded. ? ? Imaging Non-stress Test 03/04/2022 [place] Medications Notes: Haven't started prenatals yet 1 [...] a vailable Notes: MAB 02/04/2022 Non-stress Test [place] [address] [place] [address] ([address]) 02/04/2022 US, Obstetric, Biophysical Profile + [place] love Non-stress Test [address] [place] [address] ([address]) 02/04/2022 US, Doppler, Umbilical Artery [facility]
--- OUTSIDE RECORDS SUMMARY | 2022-04-15 18:01 | XMS_ITS | Encounter Summary ---
:1995 Author Reason for Visit None recorded. Assessment and Plan 1. Uterus bicornis affecting ? US, obstetric, follow-up Discussion Note: None recorded.Patient educational handouts: No information available. Plan of Care Reminders Provider Appointments None recorded. ? ? Lab None recorded. ? ? Referral None recorded. ? ? Procedures None recorded. ? ? Surgeries None recorded. ? ? Imaging US, Obstetric, Follow-up 01/13/2022 [place] Medications Notes: Haven't started prenatals yet 1 [...] vailable Notes: MAB 12/16/2021 US, Obstetric, Follow-up [place] [address] [place] [address] ([address]) 01/13/2022 US, Obstetric, Follow-up [place] [address] [place] [address] ([address]) Vaccine List None recorded. Social History Tobacc
--- OUTSIDE RECORDS SUMMARY | 2022-04-15 18:01 | XMS_ITS | Encounter Summary ---
[...] None recorded. ? ? Imaging Non-stress Test 02/15/2022 [place] Medications Notes: Haven't started prenatals yet 1 Medications Administered None recorded. Vitals Height Blood Pressure 5 ft 5 in 123/63 mm[Hg] Results Lab Results None recorded. Allergies Code Code System Name Reaction Severity Onset NKDA ? ? ? Problems Name Status Onset Date Source ? Active 10/01/2021 ? Group B Streptococcus Carrier Active 03/08/2022 ? Procedures Date Name Performed by ? 02/26/2021 Section (Surg) Information not available 01/17/2020 Dilation and Curettage Information not a vailable Notes: MAB 02/04/2022 Non-stress Test [place] [address] [place] [address] ([address]) 02/04/2022 US, Obstetric, Biophysical Profile + [place] love Non-stress Test [address] [place] [address] [phone]
--- OUTSIDE RECORDS SUMMARY | 2022-04-15 18:01 | XMS_ITS | Encounter Summary ---
[...] ft 5 in 198 lbs 32.9 kg/m2 118/74 mm[Hg] Results Lab Results None recorded. Allergies Code Code System Name Reaction Severity Onset NKDA ? ? ? Problems Name Status Onset Date Source ? Active 10/01/2021 ? Group B Streptococcus Carrier Active 03/08/2022 ? Procedures Date Name Performed by ? 02/26/2021 Section (Surg) Information not available 01/17/2020 Dilation and Curettage Information not a vailable Notes: MAB 02/18/2022 Non-stress Test [place] [address] [place] [address] ([address]) 02/18/2022 US, Obstetric, Biophysical Profile + [place] love Non-stress Test [address]
--- OUTSIDE RECORDS SUMMARY | 2022-04-15 18:01 | XMS_ITS | Encounter Summary ---
[...] None recorded. ? ? Imaging Non-stress Test 03/18/2022 [place] Medications Notes: Haven't started prenatals yet 1 [...] a vailable Notes: MAB 02/18/2022 Non-stress Test [place] [address] [place] [address] ([address]) 02/18/2022 US, Obstetric, Biophysical Profile + [place] Non-stress Test [address] [place] [address] ([address]) 02/18/2022 US, Doppler, Umbilical Artery [place] s[place]
--- OUTSIDE RECORDS SUMMARY | 2022-04-15 18:01 | XMS_ITS | Encounter Summary ---
[...] ? Imaging US, Obstetric, Biophysical Profile + [place] Non-stress Test ? US, Doppler, Umbilical Artery 02/04/2022 [place] [facility] Medications Notes: Haven't started prenatals yet [...] vailable Notes: MAB 01/13/2022 US, Obstetric, Follow-up [place] [address] [place] [address] ([address]) 02/04/2022 Non-stress Test [place]
--- OUTSIDE RECORDS SUMMARY | 2022-04-15 18:01 | XMS_ITS | Encounter Summary ---
:1995 Author Reason for Visit OB visit Assessment and Plan Assessment Note Patient is ___weeks . Discussed plan. 1. section following previous section ? section (SURG) Discussion Note: None recorded.Patient educational handouts: No information available. Plan of Care Reminders Provider Appointments None recorded. ? ? Lab None recorded. ? ? Referral None recorded. ? ? Procedures None recorded. ? ? Surgeries Section (SURG) 03/25/2022 [facility] None recorded. ? ? Medications Notes: Haven't started prenatals yet 1 Medications Administered None recorded. Vitals Height Weight BMI Blood Pressure 5 ft 5 in 197 lbs 32.8 kg/m2 122/78 mm[Hg] Results Lab Results None recorded. Allergies Code Code System Name Reaction Severity Onset NKDA ? ? ? Problems Name Status Onset Date Source ? Active 10/01/2021 ? Group B Streptococcus Carrier Active 03/08/2022 ? Procedures Date Name Performed by ? 02/26/2021 Section (Surg) Information not available 01/17/2020 Dilation and Curettage Information not a vailable Notes: [facility] 02/04/2022 Non-stress Test [facility] [address] [place] [address] ([address]) 02/04/2022 US, Obstetric, Biophysical Profile + Cailin love
[2022-04-15] MEDS: LACTATED RINGERS 1,000 ML 125 ML IV CONT ×2 (18:24→19:07)
--- NOTE | 2022-04-15 18:28 | LDADM ---
This patient, Azeb Grace, was admitted to Labor/Delivery/Recovery 102 on 04/15/22 at 17:50. Plans for labor, pain management and were discussed with patient. Patient/family oriented to hospital policies and general routines including ID bracelet, bed and alarms, visiting hours, pain management, procedures, bathroom and other care routines, personal items, smoking policy, room service/diet and guest tray routines, security routines, and visiting hours. Patient/Family are encouraged to report perceived risks to care and to ask questions if they do not understand what they are told or what they should do. See OBIX for further documentation.
[2022-04-15 18:31] LABS: Basophils Percent Auto 0.1 % (0.2-1.2); Eosinophils Percent Auto 0.1 % (0-4.4); Hematocrit 31.6 % (37.0-47.0); Immature Granulocyte Absolute 0.06 K/mm3 (0.00-0.031); Immature Granulocyte Percent A 0.5 % (0-0.5); Lymphocytes Absolute Auto 0.73 K/mm3 (0.9-3.2); Mean Corpuscular HGB Conc 31.6 g/dl (32-36); Mean Corpuscular Volume 85.4 fl (80-100); Mean Platelet Volume 11.5 fl (7.4-10.4); Monocytes Absolute Auto 0.7 K/mm3 (0.1-0.6); Monocytes Percent Auto 5.3 % (2.6-8.5); Neutrophils Absolute Auto 10.7 K/mm3 (1.3-6.7); Platelet Count Result 173 k/mm3 (150-375); Red Cell Distribution Width 15.7 % (11.5-14.5); White Blood Count 12.2 K/mm3 (4.5-10.0)
--- NOTE | 2022-04-15 19:07 | PM.IMHP ---
H&P: HPI History of Present Illness Date/Time: 04/15/22 19:07 Chief Complaint: Labor Narrative: this patient is a 27-year-old multiparous female at 42 Weeks and 0 days gestation. with previous delivery and a thmex-cya-crkwoefwtpq-age baby. Patient was considering delivery but could not decide between labor and probe labor after . When labor started she quickly decided that she wanted to have a . She reports good movement. No vaginal bleeding, no loss of fluid, to Review of Systems Review of Systems: All systems reviewed & are unremarkable except as noted in HPI and below Constitutional: Constitutional: Denies chills, Denies fatigue, Denies fever(s) and Denies weakness Eyes: Eyes: Denies blurry vision, Denies change in vision, Denies loss of peripheral vision, Denies loss of vision, Denies other visual disturbances and Denies eye pain ENT: Denies vertigo, Denies dizziness, Denies hearing loss, Denies mouth pain, Denies nasal obstruction, Denies neck mass and Denies neck pain Cardiovascular: Cardiovascular: Denies chest pain, Denies diaphoresis, Denies syncope, Denies leg edema and Denies dyspnea Respiratory: Respiratory: Denies chest congestion, Denies cough, Denies hemoptysis, Denies dyspnea and Denies wheezing Gastrointestinal: Gastrointestinal: Denies abdominal pain, Denies constipation, Denies diarrhea, Denies nausea and Denies vomiting Genitourinary: Genitourinary: Denies hematuria, Denies change in libido, Denies nocturia, Denies genital lesions, Denies flank pain and Denies urinary urgency Musculoskeletal: Musculoskeletal: Denies abnormal gait, Denies back pain, Denies myalgias, Denies arthralgias, Denies joint swelling, Denies muscle weakness and Denies neck pain Integumentary/Breasts: Skin/Breast: Denies swelling, Denies breast pain, Denies breast mass, Denies dry skin, Denies nipple discharge, Denies unusual bruising and Denies jaundice Neurologic: Denies Neuro-related abnormal movements, Denies Abnormal speech present, Denies abnormal gait, Denies behavioral changes, Denies confusion, Denies vertigo, Denies dizziness, Denies syncope, Denies loss of vision, Denies memory loss, Denies convulsions and Denies weakness Psychiatric: Psychiatric: Denies abnormal sleep pattern, Denies behavioral changes, Denies change in libido, Denies confusion, Denies depression, Denies anhedonia and Denies memory loss Endocrine: Endocrine: Reports no additional endocrine complaints, Denies change in libido and Denies fatigue Hematologic/Lymphatic: Hematologic/Lymphatic: Reports no additional hematologic/lymphatic complaints Allergic/Immunologic: Allergic/Immunologic: Reports no additional allergic/immunologic complaints and Denies wheezing PMFSH Past Medical History Medical History (Updated 04/15/22 @ 19:11 by Nicolle Adam MD) Scoliosis Family History Family History (Updated 03/18/22 @ 14:15 by Alvaro Mercado RN) Father Acute myocardial infarction Grandparent Diabetes mellitus Social History Social History (System 02/26/21 @ 14:22 by Mary Ann) Smoking status: Never smoker Substance use: never Spiritual care concerns: No Meds Home Medications and Allergies Home Medications Medication Instructions Recorded Confirmed Type prenat.vits,jeffrey,vev-phwa-rzzqa 1 tablet PO DAILY 02/11/21 04/15/22 History Allergies Allergy/AdvReac Type Severity Reaction Status Date / Time No Known Allergies Allergy Verified 03/18/22 14:15 Vital Signs Vital Signs - 24 hr 04/15/22 18:16 Pulse Rate 119 H Blood Pressure 125/83 Exam Const: General: cooperative, healthy appearing, comfortable and no acute distress; No confusion Orientation/consciousness: oriented to person, oriented to place, oriented to time and No confusion HENMT: Head: normal to inspection Ears: external ears normal General nose exam: Normal external nose present Face and sinus: normal fa
--- NOTE | 2022-04-15 19:12 | WPDHPUPDATE1 ---
History and Physical Update Update Date/Time: 04/15/22 19:12 History and Physical has been reviewed, including an updated exam of the patient. There are NO changes in the patient's condition. Risks, benefits, and alternatives have been discussed and questions answered. Patient agrees to proceed with procedure.
[2022-04-15] MEDS: ceFAZolin 2 GM/D5W 50 ML 2 GM/50 ML BAG IVPB (19:15)
--- NOTE | 2022-04-15 20:07 | W.PM.PROC2 ---
Procedure Note - Detailed Date of Procedure 04/15/22 Pre-op Diagnosis Previous , postdates Post-op Diagnosis Same Procedure Performed Low-transverse section Surgeon Nicolle Adam MD Anesthesia Spinal Indications large for gestational age, postdates, previous Findings Normal gestational maternal anatomy, average size , normal Apgars. Description of Procedure The patient was taken the operating room. She was prepped and draped in dorsal supine position with a leftward tilt. This was done after spinal anesthetic was applied. A low-transverse skin incision was made and carried down till of the fascia with the knife. The fascial incision was made with the knife. The fascial incision was extended laterally with Dupont scissors. The fascia was tented upward superiorly and inferiorly the rectus muscles were dissected off bluntly. The rectus muscles were the midline. The preperitoneal fat and peritoneum were dissected open bluntly at the superior aspect of the rectus muscles. The peritoneal incision was extended superior and inferior with good position of bladder. The uterine incision was made with a scalpel down to the level of the amniotic cavity. The amniotic cavity was entered bluntly. The was delivered. The cord was clamped and cut and the infant was handed off to waiting pediatric staff. Cord bloods were obtained. The placenta was removed manually. The uterus was exteriorized. The uterus was cleared of all clots, debris and membranes. The uterus was closed in 0 Vicryl running lock fashion. An imbricating over a was placed along the incision line as well. The uterus was returned to the abdomen. The gutters were cleared of all clots and debris. The fascia was closed with 0 Vicryl running fashion. The subcutaneous tissue was irrigated pinpoint bleeders were cauterized. The skin was closed with subcuticular absorbable nicolas. The skin incision line was covered with glue. The patient tolerated the procedure well. She has taken recovery room in stable condition. Sponge lap and needle counts were correct x2. Estimated Blood Loss 400 Complications No immediate complications Condition Stable Disposition PACU
[2022-04-15] MEDS: OXYTOCIN 30 UNITS/NS 500 ML 30 UNITS/500 ML BAG 125 UNITS IV CONT (20:50)
[2022-04-16 03:45] VITALS: BP 112/76; PULSE 88; RESP 16; TEMP 36.7
[2022-04-16 05:28] LABS: Basophils Percent Auto 0.2 % (0.2-1.2); Eosinophils Percent Auto 0.1 % (0-4.4); Hematocrit 30.3 % (37.0-47.0); Hemoglobin 9.3 g/dL (12.0-15.0); Immature Granulocyte Absolute 0.05 K/mm3 (0.00-0.031); Immature Granulocyte Percent A 0.6 % (0-0.5); Lymphocytes Absolute Auto 0.97 K/mm3 (0.9-3.2); Lymphocytes Percent Auto 11.1 % (18.3-44.2); Mean Corpuscular HGB Conc 30.7 g/dl (32-36); Mean Corpuscular Hemoglobin 26.8 pg (26-34); Mean Corpuscular Volume 87.3 fl (80-100); Mean Platelet Volume 11.8 fl (7.4-10.4); Monocytes Absolute Auto 0.5 K/mm3 (0.1-0.6); Monocytes Percent Auto 5.4 % (2.6-8.5); Neutrophils Absolute Auto 7.2 K/mm3 (1.3-6.7); Neutrophils Percent Auto 82.6 % (45.5-73.1); Platelet Count Result 144 k/mm3 (150-375); Red Blood Count 3.47 M/mm3 (4.2-5.4); Red Cell Distribution Width 15.9 % (11.5-14.5); White Blood Count 8.7 K/mm3 (4.5-10.0)
--- NOTE | 2022-04-16 07:41 | P.PNOB_ITS ---
OB - PN: Subj Subjective Date/time seen: 04/16/22 07:41 s/p vaginal delivery day 1 OB - PN: Obj Data Labs CBC & Chem 7: 04/16/22 03:47 Labs: Laboratory Results - last 24 hr 04/15/22 04/15/22 04/16/22 18:26 18:26 03:47 WBC 12.2 H 8.7 RBC 3.70 L 3.47 L Hgb 10.0 L 9.3 L Hct 31.6 L 30.3 L MCV 85.4 87.3 MCH 27.0 26.8 MCHC 31.6 L 30.7 L RDW 15.7 H 15.9 H Plt Count 173 144 L MPV 11.5 H 11.8 H Immature Gran % (Auto) 0.5 0.6 H Neut % (Auto) 88.0 H 82.6 H Lymph % (Auto) 6.0 L 11.1 L [place] % (Auto) 5.3 5.4 Eos % (Auto) 0.1 0.1 Baso % (Auto) 0.1 L 0.2 Lymph # (Auto) 0.73 L 0.97 [place] # (Auto) 0.7 H 0.5 Eos # (Auto) 0.0 0.0 Baso # (Auto) 0.0 0.0 Abs Immat Gran (auto) 0.06 H 0.05 H Absolute Neuts (auto) 10.7 H 7.2 H Absolute Nucleated RBC 0.0 0.0 Nucleated RBC % 0.0 0.0 Blood Type B Positive Antibody Screen Negative OB - PN A/P Plan day: 1 Plan: routine care Time Spent With Patient Time: Total time spent is greater than 50% in coordination of care (as documented) at patient's floor/unit and/or counseling patient: Review of Systems Review of Systems: All systems reviewed & are unremarkable except as noted in HPI and below Exam Narrative: incision CDI Const: General: cooperative, healthy appearing and comfortable
[2022-04-16] MEDS: POLYSACCHARIDE IRON COMPLEX 150 MG CAPSULE PO ×2 (08:01→15:54)
[2022-04-16] MEDS: MULTIVIT/MIN/PREN/FOL AC/IRON TABLET 1 TAB PO (08:01)
[2022-04-16] MEDS: DOCUSATE SODIUM 100 MG CAPSULE PO ×2 (08:01→15:54)
[2022-04-16] MEDS: HYDROcodone/acetaminophen (*CRX) 5-325 MG TABLET 1 TAB PO ×2 (08:01→08:50)
[2022-04-16] MEDS: IBUPROFEN 600 MG TABLET PO ×2 (08:02→15:54)
[2022-04-16 08:10] VITALS: BP 109/67; PULSE 91; RESP 18; TEMP 36.8; O2SAT 99
--- NOTE | 2022-04-16 08:34 | WPDANLDPN2 ---
Anes-Prog Note L&D Date/Time: 04/16/22 08:34 Neuro status: Neuro function grossly intact. Vital Signs: Last Vital Signs Temp 36.7 C 04/16/22 03:45 Pulse 88 04/16/22 03:45 Resp 16 04/16/22 03:45 BP 112/76 04/16/22 03:45 Pulse Ox 98 04/15/22 22:06 O2 Del Method Room Air 04/15/22 22:10 Pain score (VAS): 0 I/O: Intake & Output 04/15/22 04/16/22 04/16/22 23:59 07:59 15:59 Intake Total 1050 1000 Output Total 1218 1000 Balance -168 0 Patient feedback: Patient satisfied with anesthetic care.
--- NOTE | 2022-04-16 08:34 | WPDANLDNPN2 ---
Anes-Prog Note L&D-Neuraxial Date/Time: 04/16/22 08:34 Patient feedback: Patient satisfied with post-operative pain management.
--- NOTE | 2022-04-16 11:02 | PC.NURSE ---
[id number] Mother demonstrates she is able to independently latch in the football hold to the left breast. She denies any nipple discomfort and is responsively . is currently meeting outcomes for weight, output, jaundice and feeding frequencies of 8-12 times in 24 hours. Assisted mother with improving positioning of infant at the breast keeping the ear, shoulder, and hip in alignment. Infant is demonstrating good rocking motion and suck/swallow ratio. Mother is encouraged to call for assistance if her doesn?t latch or there is discomfort with latching. Mother voiced understanding of information shared and mom and baby guide reviewed for additional resource information . Reported to the primary RN.
[2022-04-16 11:30] LABS: Rapid Plasma Reagin Non-Reactive (NonReactive)
[2022-04-16] MEDS: HYDROcodone/acetaminophen (*CRX) 10-325 MG TABLET 1 TAB PO ×3 (12:02→19:56)
[2022-04-16 12:16] VITALS: BP 88/58; PULSE 67; RESP 16; TEMP 36.5; O2SAT 99
[2022-04-16 15:30] VITALS: BP 109/76; PULSE 87; RESP 16; TEMP 36.2; O2SAT 100
[2022-04-16 20:30] VITALS: BP 108/71; PULSE 76; RESP 18; TEMP 36.5; O2SAT 98
[2022-04-17] MEDS: IBUPROFEN 600 MG TABLET PO ×4 (00:20→22:58)
[2022-04-17] MEDS: HYDROcodone/acetaminophen (*CRX) 10-325 MG TABLET 1 TAB PO ×3 (00:20→11:00)
[2022-04-17] MEDS: HYDROcodone/acetaminophen (*CRX) 5-325 MG TABLET 1 TAB PO ×4 (07:14→22:59)
[2022-04-17] MEDS: SIMETHICONE 80 MG TAB.CHEW PO ×4 (07:14→22:58)
[2022-04-17] MEDS: MULTIVIT/MIN/PREN/FOL AC/IRON TABLET 1 TAB PO (07:14)
[2022-04-17] MEDS: POLYSACCHARIDE IRON COMPLEX 150 MG CAPSULE PO ×2 (07:15→16:02)
[2022-04-17] MEDS: DOCUSATE SODIUM 100 MG CAPSULE PO ×2 (07:15→16:02)
[2022-04-17 07:30] VITALS: BP 109/68; PULSE 76; PULSE 80; RESP 16; RESP 18; TEMP 36.4; O2SAT 98
--- NOTE | 2022-04-17 08:45 | PM.OBPNVD ---
OB - PN: Subj Subjective Date/time seen: 04/17/22 08:45 s/p section day 2 OB - PN: Obj Data Labs CBC & Chem 7: 04/16/22 03:47 Labs: Laboratory Results - last 24 hr 04/15/22 18:26 RPR Non-reactive OB - PN A/P Plan day: 2 Plan: routine care Time Spent With Patient Time: Total time spent is greater than 50% in coordination of care (as documented) at patient's floor/unit and/or counseling patient: Review of Systems Review of Systems: All systems reviewed & are unremarkable except as noted in HPI and below Exam Const: General: cooperative, healthy appearing and comfortable
[2022-04-17 19:00] VITALS: BP 116/79; PULSE 82; RESP 18; TEMP 36.4; O2SAT 100
[2022-04-18] MEDS: HYDROcodone/acetaminophen (*CRX) 5-325 MG TABLET 1 TAB PO (03:21)
[2022-04-18] MEDS: SIMETHICONE 80 MG TAB.CHEW PO ×2 (03:21→09:25)
[2022-04-18 07:45] VITALS: BP 113/74; PULSE 71; RESP 16; TEMP 36; O2SAT 100
--- NOTE | 2022-04-18 09:13 | PM.OBPNVD ---
OB - PN: Subj Subjective Date/time seen: 04/18/22 09:13 s/p delivery day 3 OB - PN: Obj Data Labs CBC & Chem 7: 04/16/22 03:47 OB - PN A/P Plan day: 3 Plan: routine care and discharge home Time Spent With Patient Time: Total time spent is greater than 50% in coordination of care (as documented) at patient's floor/unit and/or counseling patient: Review of Systems Review of Systems: All systems reviewed & are unremarkable except as noted in HPI and below Exam Const: General: cooperative, healthy appearing and comfortable
--- NOTE | 2022-04-18 09:16 | P.DS_ITS ---
DS: Admitting Diagnosis Discharge Date 04/18/22 Admitting Diagnosis repeat section OB - DS: Summary OB Procedures : None OB Procedures Intrapartum: Spontaneous Vag Delivery OB Procedures: : None Peripartum Data Procedures: Procedures Operation Date: 03/25/22 07:30 <No data on this case meets the specified criteria> Operation Date: 04/15/22 19:00 Actual Procedure Side Surgeon p Section Bilateral Nicolle Adam MD Time Spent with Patient Time attestation: Total time spent providing and/or coordinating discharge services: DS: Data Data Completed and Pending Pending studies at discharge: Pending at discharge 04/15/22 20:24 Surgical [PTH] Routine Discharge Plan Discharge Attending physician on discharge: Nicolle Adam Discharging Clinician: Asha Kowalski Patient Disposition: Home, Self-Care Activity: pelvic rest Diet: regular Patient Instructions: Antibiotic Form Stand Alone Forms: General Discharge Information Follow-up/Referrals: Nicolle Adam MD [Physician] - 1 Week Discharge Medications: New hydrocodone-acetaminophen 5-325 mg Tablet 1 tablet PO Q3H PRN (Reason: Moderate Pain (4-6)) Qty: 20 0RF Continued prenat.vits,jeffrey,qgc-jdiv-rlage Tablet 1 tablet PO DAILY Date of admission: 04/15/22 17:50 Primary Care Provider: PHYSICIAN,S[employer] DATA ARCHITECT Admitting Provider: Nicolle Adam Attending physician on admission: Nicolle Adam Condition: Stable
[2022-04-18] MEDS: IBUPROFEN 600 MG TABLET PO (09:25)
[2022-04-18] MEDS: HYDROcodone/acetaminophen (*CRX) 10-325 MG TABLET 1 TAB PO (09:26)
[2022-04-18] MEDS: POLYSACCHARIDE IRON COMPLEX 150 MG CAPSULE PO (09:26)
[2022-04-18] MEDS: MULTIVIT/MIN/PREN/FOL AC/IRON TABLET 1 TAB PO (09:26)
[2022-04-18] MEDS: DOCUSATE SODIUM 100 MG CAPSULE PO (09:26)
[2022-04-18 09:30] VITALS: PULSE 71; RESP 16; O2SAT 100
[2022-04-19 09:03] VITALS: BP 119/78; PULSE 95; RESP 20; TEMP 37.1; O2SAT 99
== END 2022-04-18 13:30 | disposition home or self-care (01) | DRG 540 ==
LOC: ANHLDR 18:03 → ANHOB2 22:35
PROVIDERS: Admitting Provider Obstetrics & Gynecology; Visit Provider Obstetrics & Gynecology
PROC: 10D00Z1 Extraction of Products of Conception, Low, Open Approach (ICD-10-PCS; CPT 59514; principal; 2022-04-15 19:00)
DX: O34.219 Maternal care for unspecified type scar from previous cesarean delivery (principal); O36.63X0 Maternal care for excessive fetal growth, third trimester, not applicable or unspecified; O99.824 Streptococcus B carrier state complicating childbirth; O77.0 Labor and delivery complicated by meconium in amniotic fluid; O43.193 Other malformation of placenta, third trimester; Z3A.42 42 weeks gestation of pregnancy; Z37.0 Single live birth; O48.0 Post-term pregnancy
CPT/HCPCS: 36415; 85025; 86592; 86850; 86900; 86901; 88307; A9270; J0131; J0690; J2274; J2370; J2405; J2590; J7120

== ENCOUNTER 2022-05-21 14:50 | Outpatient (CLI) | payer OTHER, SELFPAY ==
--- NOTE | ~2022-05-21 | XR_ITS ---
EXAMINATION: XR scoliosis survey DATE: 05/21/2022 15:32 INDICATION: Scoliosis of the spine TECHNIQUE: Standing AP and lateral views of the spine were obtained on 3 separate overlapping cephala d to caudal images. COMPARISON: None FINDINGS: Sagittal alignment is normal. Vertebral body heights are normal. Mild to moderate disc height loss th roughout the cervical spine. Disc heights in the cervical and lumbar spine are relatively preserved. 3 component thoracolumbar scoliosis with 12 degree levoscoliosis measured between T2 and T5, 17 degre e dextroscoliosis measured between T6 and T11 and 21 degree levoscoliosis with associated rotational component from T11 through L3. Lungs are clear with no airspace opacities, pulmonary edema, pleural e ffusion or pneumothorax. Cardiomediastinal silhouette is normal. Lead shielding of the breasts scarri ng portion of the lower lungs on the frontal projection. Normal bowel gas pattern. IMPRESSION: 1. 3 component S-shaped thoracolumbar scoliosis including a 21 degree levoscoliosis at the thoracolum bar junction as detailed above. Reviewed, dictated and finalized at location A. IMPRESSION: 1. 3 component S-shaped thoracolumbar scoliosis including a 21 degree levoscoli osis at the thoracolumbar junction as detailed above.
== END 2022-05-21 14:51 | disposition home or self-care (01) ==
PROVIDERS: Visit Provider Advanced Practice Midwife
DX: M41.9 Scoliosis, unspecified (principal)
CPT/HCPCS: 72082

== ENCOUNTER 2023-05-02 09:49 | Outpatient (CLI) | payer OTHER, SELFPAY ==
[2023-05-02 10:08] LABS: Hematocrit 31.6 % (37.0-47.0); Mean Corpuscular HGB Conc 31.6 g/dl (32-36); Mean Corpuscular Hemoglobin 27.4 pg (26-34); Mean Corpuscular Volume 86.6 fl (80-100); Mean Platelet Volume 12.1 fl (7.4-10.4); Platelet Count Result 160 k/mm3 (150-375); Red Blood Count 3.65 M/mm3 (4.2-5.4); Red Cell Distribution Width 15.6 % (11.5-14.5); White Blood Count 5.9 K/mm3 (4.5-10.0)
[2023-05-02 12:37] LABS: Rapid Plasma Reagin Non-Reactive (NonReactive)
== END 2023-05-02 09:50 | disposition home or self-care (01) ==
LOC: ANHLAB 09:51
PROVIDERS: Visit Provider Obstetrics & Gynecology
DX: Z34.93 Encounter for supervision of normal pregnancy, unspecified, third trimester (principal); Z3A.00 Weeks of gestation of pregnancy not specified
CPT/HCPCS: 36415; 85027; 86592; 86850; 86900; 86901

== ENCOUNTER 2023-05-03 09:58 | Inpatient (IN) | payer OTHER, SELFPAY ==
[2023-05-03] VITALS (46 sets, daily range): BP systolic 89–152; BP diastolic 52–77; PULSE 56–98; RESP 12–19; TEMP 36.2–36.9; O2SAT 95–100
--- NOTE | 2023-05-03 10:45 | WPDHPUPDATE1 ---
History and Physical Update Update Date/Time: 05/03/23 10:45 History and Physical has been reviewed, including an updated exam of the patient. There are NO changes in the patient's condition. Risks, benefits, and alternatives have been discussed and questions answered. Patient agrees to proceed with procedure.
--- NOTE | 2023-05-03 10:45 | PM.IMHP ---
H&P: HPI History of Present Illness Date/Time: 05/03/23 10:45 Chief Complaint: Previous , term Narrative: This patient is a 28-year-old multiparous female with a previous and a current gestation at term. We have agreed to perform repeat delivery. She understands the risks. She understands that injuries may occur her of the result in hospitalization, more surgery, and severe illness. She understands risk of hemorrhage and infection. She denies any nausea, vomiting, fever, chills. She denies any chest pain shortness of breath. She denies contractions, loss of fluid, vaginal bleeding. Review of Systems Review of Systems: All systems reviewed & are unremarkable except as noted in HPI and below Constitutional: Constitutional: Denies chills, Denies fatigue, Denies fever(s) and Denies weakness Eyes: Eyes: Denies blurry vision, Denies change in vision, Denies loss of peripheral vision, Denies loss of vision, Denies other visual disturbances and Denies eye pain ENT: Denies vertigo, Denies dizziness, Denies hearing loss, Denies mouth pain, Denies nasal obstruction, Denies neck mass and Denies neck pain Cardiovascular: Cardiovascular: Denies chest pain, Denies diaphoresis, Denies syncope, Denies leg edema and Denies dyspnea Respiratory: Respiratory: Denies chest congestion, Denies cough, Denies hemoptysis, Denies dyspnea and Denies wheezing Gastrointestinal: Gastrointestinal: Denies abdominal pain, Denies constipation, Denies diarrhea, Denies nausea and Denies vomiting Genitourinary: Genitourinary: Denies hematuria, Denies change in libido, Denies nocturia, Denies genital lesions, Denies flank pain and Denies urinary urgency Musculoskeletal: Musculoskeletal: Denies abnormal gait, Denies back pain, Denies myalgias, Denies arthralgias, Denies joint swelling, Denies muscle weakness and Denies neck pain Integumentary/Breasts: Skin/Breast: Denies swelling, Denies breast pain, Denies breast mass, Denies dry skin, Denies nipple discharge, Denies unusual bruising and Denies jaundice Neurologic: Denies Neuro-related abnormal movements, Denies Abnormal speech present, Denies abnormal gait, Denies behavioral changes, Denies confusion, Denies vertigo, Denies dizziness, Denies syncope, Denies loss of vision, Denies memory loss, Denies convulsions and Denies weakness Psychiatric: Psychiatric: Denies abnormal sleep pattern, Denies behavioral changes, Denies change in libido, Denies confusion, Denies depression, Denies anhedonia and Denies memory loss Endocrine: Endocrine: Reports no additional endocrine complaints, Denies change in libido and Denies fatigue Hematologic/Lymphatic: Hematologic/Lymphatic: Reports no additional hematologic/lymphatic complaints Allergic/Immunologic: Allergic/Immunologic: Reports no additional allergic/immunologic complaints and Denies wheezing [facility] Past Medical History Medical History (Updated 04/18/22 @ 09:15 by Asha Kowalski CNM) Scoliosis Family History Family History Father Acute myocardial infarction Grandparent Diabetes mellitus Social History Social History (System 02/26/21 @ 14:22 by Mary Ann) Smoking status: Never smoker Substance use: never Spiritual care concerns: No Meds Home Medications and Allergies Home Medications Medication Instructions Recorded Confirmed Type prenat.vits,jeffrey,nta-rceo-zxble 1 tablet PO DAILY 02/11/21 04/15/22 History Allergies Allergy/AdvReac Type Severity Reaction Status Date / Time No Known Allergies Allergy Verified 03/18/22 14:15 Exam Const: General: cooperative, healthy appearing, comfortable and no acute distress Orientation/consciousness: oriented to person, oriented to place and oriented to time HENMT: Head: normal to inspection Ears: external ears normal Face/Nose/Sinus: Normal external nose present and normal facial exam
--- NOTE | 2023-05-03 10:59 | LDADM ---
This patient, Azeb Grace, was admitted to Labor/Delivery/Recovery 120 on 05/03/23 at 09:58. Plans for labor, pain management and were discussed with patient. Patient/family oriented to hospital policies and general routines including ID bracelet, bed and alarms, visiting hours, pain management, procedures, bathroom and other care routines, personal items, smoking policy, room service/diet and guest tray routines, security routines, and visiting hours. Patient/Family are encouraged to report perceived risks to care and to ask questions if they do not understand what they are told or what they should do. See OBIX for further documentation.
[2023-05-03] MEDS: LACTATED RINGERS 1,000 ML 125 ML IV CONT ×2 (11:00→11:41)
[2023-05-03] MEDS: ceFAZolin 2 GM/D5W 50 ML 2 GM/50 ML BAG IVPB (11:50)
--- NOTE | 2023-05-03 12:28 | P.PNAN_ITS ---
Anes - Initial Pre Proc Eval Procedure: Operation Date: 05/03/23 12:00 Proposed Procedures p Repeat Section - Nicolle Adam MD Date/Time: 05/03/23 12:28 Surgeon: Nicolle Adam MD Pre Op Diagnosis: previous - c-sec/pre admit Patient Data Age: 28 Gender: F Height: 1.65 m Weight: 82 kg Last Vital Signs Pulse 87 05/03/23 11:16 BP 106/65 05/03/23 11:16 O2 Del Method Room Air 05/03/23 10:58 Allergies Allergy/AdvReac Type Severity Reaction Status Date / Time No Known Allergies Allergy Verified 03/18/22 14:15 Home Medications Medication Instructions Recorded Confirmed Type prenat.vits,jeffrey,ayc-zjeq-pqgpx 1 tablet PO DAILY 02/11/21 05/03/23 History Patient hx anesthesia problems: none Family hx anesthesia problems: none Results Review: All pre-operative results and documents have been reviewed as part of the pre- operative evaluation. [facility] Past Medical History Medical History (Updated 04/18/22 @ 09:15 by Asha Kowalski CNM) Scoliosis Family History Family History Father Acute myocardial infarction Grandparent Diabetes mellitus Social History Social History (System 02/26/21 @ 14:22 by Mary Ann) Smoking status: Never smoker Substance use: never Lack of Transportation: No Lack of Food: Never True Current Housing: I Have Housing Concerned About Future Housing: No Difficulty Paying Gas/Electric Bills: No Difficulty Paying for Meds: No Currently Unemployed: No Education: Bachelor's Degree Difficulty w/ Childcare or Family Care: No Spiritual care concerns: No Anes - Eval Final PreProcedure Day of Procedure 05/03/23 12:28 Patient weight: obese Heart: regular rate and rhythm Lungs: clear to auscultation and normal air movement Airway: Mallampati scale class II Neurological: alert and oriented Last oral intake: >/= 8 hours ASA classification: II Emergent: no Anesthetic plan: proceed Anesthesia type and monitoring: regional spinal and standard monitoring Results Review: All pre-operative results and documents have been reviewed as part of the pre- operative evaluation. Informed Consent: The patient's anesthetic plan and its attendant risks and benefits were discussed with the patient/family/POA. Questions were solicited and answers provided to the satisfaction of the patient/family/POA.
--- NOTE | 2023-05-03 12:31 | W.PM.PROC2 ---
Procedure Note - Detailed Date of Procedure 05/03/23 Pre-op Diagnosis previous - c-sec/pre admit Post-op Diagnosis Same Procedure Performed Low-transverse section Surgeon Nicolle Adam MD Anesthesia Spinal Findings Normal gestational maternal anatomy, average size infant, normal Apgars. Description of Procedure The patient was taken the operating room. She was prepped and draped in dorsal supine position with a leftward tilt. This was done after spinal anesthetic was applied. A low-transverse skin incision was made and carried down till of the fascia with the knife. The fascial incision was made with the knife. The fascial incision was extended laterally with Dupont scissors. The fascia was tented upward superiorly and inferiorly the rectus muscles were dissected off bluntly. The rectus muscles were the midline. The preperitoneal fat and peritoneum were dissected open bluntly at the superior aspect of the rectus muscles. The peritoneal incision was extended superior and inferior with good position of bladder. The uterine incision was made with a scalpel down to the level of the amniotic cavity. The amniotic cavity was entered bluntly. The was delivered. The cord was clamped and cut and the infant was handed off to waiting pediatric staff. Cord bloods were obtained. The placenta was removed manually. The uterus was exteriorized. The uterus was cleared of all clots, debris and membranes. The uterus was closed in 0 Vicryl running lock fashion. An imbricating over a was placed along the incision line as well. The uterus was returned to the abdomen. The gutters were cleared of all clots and debris. The fascia was closed with 0 Vicryl running fashion. The subcutaneous tissue was irrigated pinpoint bleeders were cauterized. The skin was closed with subcuticular absorbable nicolas. The skin incision line was covered with glue. The patient tolerated the procedure well. She has taken recovery room in stable condition. Sponge lap and needle counts were correct x2. Complications No immediate complications Condition Stable Disposition PACU
[2023-05-03] MEDS: OXYTOCIN 30 UNITS/NS 500 ML 30 UNITS/500 ML BAG 125 UNITS IV CONT (13:40)
[2023-05-03] MEDS: ONDANSETRON INJ 4 MG/2 ML VIAL (13:42)
[2023-05-03] MEDS: LORATADINE 10 MG TABLET (14:43)
[2023-05-03] MEDS: DEXTROSE 5%/0.45% SOD CHL 1,000 ML 125 ML IV CONT (17:00)
[2023-05-03] MEDS: SIMETHICONE 80 MG TAB.CHEW PO (22:30)
[2023-05-03] MEDS: IBUPROFEN 600 MG TABLET PO (22:30)
[2023-05-04 04:00] VITALS: BP 94/54; PULSE 78; RESP 18; TEMP 36.9
[2023-05-04] MEDS: ACETAMINOPHEN 325 MG TABLET 650 MG PO (04:13)
[2023-05-04] MEDS: IBUPROFEN 600 MG TABLET PO ×4 (04:14→23:23)
[2023-05-04 05:40] LABS: Basophils Percent Auto 0.4 % (0.2-1.2); Eosinophils Absolute Auto 0.1 K/mm3 (0-0.3); Eosinophils Percent Auto 0.7 % (0-4.4); Hematocrit 31.7 % (37.0-47.0); Hemoglobin 9.8 g/dL (12.0-15.0); Immature Granulocyte Absolute 0.04 K/mm3 (0.00-0.031); Immature Granulocyte Percent A 0.4 % (0-0.5); Lymphocytes Percent Auto 17.6 % (18.3-44.2); Mean Corpuscular HGB Conc 30.9 g/dl (32-36); Mean Corpuscular Hemoglobin 28.2 pg (26-34); Mean Corpuscular Volume 91.4 fl (80-100); Mean Platelet Volume 12.6 fl (7.4-10.4); Monocytes Absolute Auto 0.6 K/mm3 (0.1-0.6); Monocytes Percent Auto 6.8 % (2.6-8.5); Neutrophils Absolute Auto 6.8 K/mm3 (1.3-6.7); Neutrophils Percent Auto 74.1 % (45.5-73.1); Platelet Count Result 157 k/mm3 (150-375); Red Blood Count 3.47 M/mm3 (4.2-5.4); Red Cell Distribution Width 15.9 % (11.5-14.5); White Blood Count 9.1 K/mm3 (4.5-10.0)
--- NOTE | 2023-05-04 07:30 | PC.NURSE ---
Pt introductions made and plan of care discussed per post op c section, pain management, breast feeding, daily care activities and pending discharge to home. PT and spouse both recipients of such instructions and no barriers to learning identified at this time. PT received such instructions per one to one discussion, mom baby care guide and demonstrations per shift. PT verbalized understanding of such care.
[2023-05-04 07:40] VITALS: BP 88/54; PULSE 77; RESP 18; TEMP 36.7; O2SAT 99
--- NOTE | 2023-05-04 07:47 | PM.OBPNVD ---
OB - PN: Subj Subjective Date/time seen: 05/04/23 07:47 Interval history: delivery day 1 flatus present pain well managed breast feeding OB - PN: Obj Data Labs 05/04/23 04:28 Labs: Laboratory Results - last 24 hr 05/04/23 04:28 WBC 9.1 RBC 3.47 L Hgb 9.8 L Hct 31.7 L MCV 91.4 D MCH 28.2 MCHC 30.9 L RDW 15.9 H Plt Count 157 MPV 12.6 H Immature Gran % (Auto) 0.4 Neut % (Auto) 74.1 H Lymph % (Auto) 17.6 L [place] % (Auto) 6.8 Eos % (Auto) 0.7 Baso % (Auto) 0.4 Lymph # (Auto) 1.60 [place] # (Auto) 0.6 Eos # (Auto) 0.1 Baso # (Auto) 0.0 Abs Immat Gran (auto) 0.04 H Absolute Neuts (auto) 6.8 H Absolute Nucleated RBC 0.0 Nucleated RBC % 0.0 OB - PN A/P Plan day: 1 Plan: routine care Time Spent With Patient Time: Total time spent is greater than 50% in coordination of care (as documented) at patient's floor/unit and/or counseling patient: Review of Systems Review of Systems: All systems reviewed & are unremarkable except as noted in HPI and below Exam Const: General: cooperative, healthy appearing and comfortable Resp: Effort & Inspection: normal respiratory effort Cardio: Rate: regular rate Rhythm: regular rhythm GI: Other: incision CDI Extrem: Right lower extremity: normal to inspection Left lower extremity: normal to inspection Psych: Appearance: grossly normal
[2023-05-04] MEDS: HYDROcodone/acetaminophen (*CRX) 5-325 MG TABLET 1 TAB PO ×2 (10:08→13:20)
[2023-05-04] MEDS: MULTIVIT/MIN/PREN/FOL AC/IRON TABLET 1 TAB PO (10:10)
[2023-05-04] MEDS: SIMETHICONE 80 MG TAB.CHEW PO ×3 (10:10→23:23)
[2023-05-04] MEDS: LANOLIN (LANSINOH) 7.5 GM CREAM 1 APPLIC TOPICAL (10:11)
[2023-05-04] MEDS: POLYSACCHARIDE IRON COMPLEX 150 MG CAPSULE PO ×2 (10:11→17:27)
[2023-05-04] MEDS: DOCUSATE SODIUM 100 MG CAPSULE PO ×2 (10:11→17:26)
[2023-05-04 10:15] VITALS: PULSE 77; RESP 18; O2SAT 99
--- NOTE | 2023-05-04 12:21 | WPDANLDNPN2 ---
Anes-Prog Note L&D-Neuraxial Date/Time: 05/04/23 12:21 Neuraxial medications: intrathecal PF morphine Opiod-related complaints: none Patient feedback: Patient satisfied with post-operative pain management.
--- NOTE | 2023-05-04 12:21 | WPDANLDPN2 ---
Anes-Prog Note L&D Date/Time: 05/04/23 12:21 Neuro status: Neuro function grossly intact. Cardiovascular status: normal Respiratory status: normal Airway patency: baseline Mental status: baseline Post-Op hydration status: normal Vital Signs: Last Vital Signs Temp 36.7 C 05/04/23 07:40 Pulse 77 05/04/23 10:15 Resp 18 05/04/23 10:15 BP 88/54 L 05/04/23 07:40 Pulse Ox 99 05/04/23 10:15 O2 Del Method Room Air 05/04/23 10:15 Pain score (VAS): 2 I/O: Intake & Output 05/03/23 05/04/23 05/04/23 23:59 07:59 15:59 Intake Total 2840 2000 480 Output Total 1400 4300 Balance 1440 -2300 480 Post-procedural complaints: none Patient feedback: Patient satisfied with anesthetic care.
[2023-05-04 12:37] VITALS: BP 93/57; PULSE 80; RESP 16; TEMP 36.8; O2SAT 99
--- NOTE | 2023-05-04 15:19 | PC.NURSE ---
[id number] Mother verbalizes she is able to independently latch with appropriate positioning/alignment. She denies any nipple discomfort and is responsively . Infant is currently meeting outcomes for weight, output, jaundice and feeding frequencies of 8-12 times in 24 hours. Since has not breastfed since 0700 for 2 minutes, RN encouraged waking to breastfeed. Mother demonstrated latching her infant to the right breast using the cradle positioning, good effective jaw rocking motion with occasional swallowing was visualized and mother denie pain. Mother declines any additional assistance/education at this time. Mother is encouraged to call for assistance if her infant doesn?t latch or there is discomfort with latching.
[2023-05-04] MEDS: TUBING, BLOOD PLUM PUMP TUBING 1 EACH XX (17:00)
[2023-05-04] MEDS: HYDROcodone/acetaminophen (*CRX) 10-325 MG TABLET 1 TAB PO ×2 (17:30→23:23)
[2023-05-04 20:00] VITALS: BP 92/60; PULSE 87; RESP 16; TEMP 36.6; O2SAT 97
[2023-05-05] MEDS: IBUPROFEN 600 MG TABLET PO ×2 (04:54→13:28)
[2023-05-05] MEDS: HYDROcodone/acetaminophen (*CRX) 10-325 MG TABLET 1 TAB PO ×3 (04:54→13:27)
[2023-05-05] MEDS: SIMETHICONE 80 MG TAB.CHEW PO ×2 (04:58→09:18)
[2023-05-05 08:05] VITALS: BP 103/64; PULSE 81; RESP 18; TEMP 36.8; O2SAT 100
--- NOTE | 2023-05-05 08:30 | P.PNOB_ITS ---
OB - PN: Subj Subjective Date/time seen: 05/05/23 08:30 Interval history: delivery day 1 flatus present pain well managed breast feeding Patient comments: no complaints, pain well controlled, incisional pain, tolerati ng diet and flatus present OB - PN: Obj Data Labs 05/04/23 04:28 OB - PN A/P Plan day: 2 Plan: routine care Comments: POD#2 LTCS - no problems, Time Spent With Patient Time: Total time spent is greater than 50% in coordination of care (as documented) at patient's floor/unit and/or counseling patient: Exam Const: General: comfortable, no acute distress and alert Resp: Effort & Inspection: normal respiratory effort Auscultation: no crackles, no rales and no rhonchi Cardio: Rate: regular rate Heart sounds: no click, no murmurs and no rubs GI: Inspection: non-distended GI Palp: No Tenderness to palpation present (GI) Auscultation: normal bowel sounds Other: Incision - CDI Extrem: General: normal to inspection, no pedal edema and no calf tenderness
--- NOTE | 2023-05-05 08:30 | PM.OBDSVD ---
DS: Admitting Diagnosis Discharge Date May 05, 2023 Admitting Diagnosis term OB - DS: Summary OB Procedures : None OB Procedures Intrapartum: OB Procedures: : None Peripartum Data Procedures: Procedures Operation Date: 05/03/23 12:00 Actual Procedure Side Surgeon p Repeat Section Bilateral Nicolle Adam MD Time Spent with Patient Time attestation: Total time spent providing and/or coordinating discharge services: Discharge Plan Discharge Attending physician on discharge: Nicolle Adam Discharging Clinician: Nicolle Adam Patient Disposition: Home, Self-Care Activity: pelvic rest Diet: regular Patient Instructions: Antibiotic Form Stand Alone Forms: General Discharge Information Follow-up/Referrals: Nicolle Adam MD [Physician] - Discharge Medications: Continued prenat.vits,jeffrey,[id number] Tablet 1 tablet PO DAILY Date of admission: 05/03/23 09:58 Primary Care Provider: PHYSICIAN,PROFESSOR COMPUTER SCIENCE Admitting Provider: Nicolle Adam Attending physician on admission: Nicolle Adam Condition: Stable
[2023-05-05 09:00] VITALS: PULSE 81; RESP 18; O2SAT 100
[2023-05-05] MEDS: MULTIVIT/MIN/PREN/FOL AC/IRON TABLET 1 TAB PO (09:18)
[2023-05-05] MEDS: DOCUSATE SODIUM 100 MG CAPSULE PO (09:18)
[2023-05-05] MEDS: POLYSACCHARIDE IRON COMPLEX 150 MG CAPSULE PO (09:18)
--- NOTE | 2023-05-05 14:00 | PC.NURSE ---
PT discharged to home ambulatory accompanied by both fob and and taken to waiting car. Follow up appts confirmed
--- NOTE | 2023-05-05 14:00 | PC.NURSE ---
PT received post , discharge instructions per protocol and verbalized understanding of such care. Patient was given the opportunity to view the discharge video Mother & Baby Care, The First Two Weeks and to ask questions. Patient declined viewing the video and has been given the mother/baby guide for home reference.
--- NOTE | 2023-05-05 14:24 | PC.NURSE ---
[id number] Mother led the conversation her ability to independently latch optimally without discomfort and is demonstrating effective on the left breast now. Mother is feeding appropriately for growth of infant and understands stimulating infant to eat if needed. has had appropriate feedings in the last 24 hours meets the outcomes for weight, output and jaundice at this time. Mother states she is confident to continue effectively her infant at home, when to call for assistance and denies any additional assistance or education at this time. Reinforced understanding of milk production, transition of milk, signs of adequate intake, transition of stool, prevention/relief of engorgement, plugged ducts, mastitis, responsive watching for feeding cues, the different methods of stimulating infant to breastfeed 2-3 hours after the start of the last feeding, community resources and when to call a provider using the resource of the mom and baby guide. Mother voiced understanding of the education shared.
[2023-05-06 08:17] VITALS: BP 109/70; PULSE 99; RESP 20; TEMP 36.8; O2SAT 100
--- NOTE | 2023-05-15 21:11 | P.PNOB_ITS ---
OB - Triage/Final Diagnosis Visit Information Comments/Additional reasons for admission: I have assessed the risk for this patient, Azeb Grace, and determined that she would benefit from observation care. Evaluation Laboratory results: Laboratory Tests 05/04/23 04:28 WBC 9.1 RBC 3.47 L Hgb 9.8 L Hct 31.7 L MCV 91.4 D MCH 28.2 MCHC 30.9 L RDW 15.9 H Plt Count 157 MPV 12.6 H Immature Gran % (Auto) 0.4 Neut % (Auto) 74.1 H Lymph % (Auto) 17.6 L [place] % (Auto) 6.8 Eos % (Auto) 0.7 Baso % (Auto) 0.4 Lymph # (Auto) 1.60 [place] # (Auto) 0.6 Eos # (Auto) 0.1 Baso # (Auto) 0.0 Abs Immat Gran (auto) 0.04 H Absolute Neuts (auto) 6.8 H Absolute Nucleated RBC 0.0 Nucleated RBC % 0.0 Final Diagnosis (1) Previous section: Code(s): Z98.891 - History of uterine scar from previous surgery Status: Acute
== END 2023-05-05 14:43 | disposition home or self-care (01) | DRG 540 ==
LOC: ANHLDR 10:34 → ANHOB2 15:27
PROVIDERS: Admitting Provider Obstetrics & Gynecology; Visit Provider Obstetrics & Gynecology
PROC: 10D00Z1 Extraction of Products of Conception, Low, Open Approach (ICD-10-PCS; CPT 59514; principal; 2023-05-03 12:00)
DX: O34.211 Maternal care for low transverse scar from previous cesarean delivery (principal); Z37.0 Single live birth; Z3A.39 39 weeks gestation of pregnancy; O99.892 Other specified diseases and conditions complicating childbirth; M41.9 Scoliosis, unspecified
CPT/HCPCS: 36415; 85025; 85027; 86592; 86850; 86900; 86901; A9270; J0690; J2274; J2405; J2590; J7120

== ENCOUNTER 2023-08-07 19:44 | Emergency (ER) | payer OTHER, SELFPAY ==
[2023-08-07] VITALS (9 sets, daily range): BP systolic 104–126; BP diastolic 73–88; PULSE 61–102; RESP 14–22; TEMP 36.8; O2SAT 96–100
--- NOTE | 2023-08-07 20:28 | ED.BACK ---
HPI - Back Pain/Injury General Chief Complaint: Back Pain/Injury Stated Complaint: lower back pain injury Time Seen by Provider: 08/07/23 20:09 History of Present Illness HPI Narrative: 28 y/o F reports for evaluation for sudden onset back pain x1 hour. Patient states 1 hour ago, she bent over to [employer] a toy off the ground and felt a pop in her low back. States since then she has had pain that is worse with movement and ambulation. She reports relief when she lays flat on the bed. She denies radiating symptoms down her legs but does state that it sometimes radiates up into her back. She denies paresthesias or numbness in her legs, saddle anesthesia, loss of bowel or bladder control or retention, fever, nausea or vomiting, history of cancer, a sister is or immunosuppressants, dysuria or hematuria. Patient had a section without complications and April of 2023 and has not had a period since. Related Data Home Medications Medication Instructions Recorded Confirmed prenat.vits,jeffrey,[id number] 1 tablet PO DAILY 02/11/21 05/03/23 Allergies Allergy/AdvReac Type Severity Reaction Status Date / Time No Known Allergies Allergy Verified 08/07/23 20:36 Review of Systems Review of Systems: CONSTITUTIONAL: Denies fever, chills, or sweats. EYES: Denies visual changes, redness, or discharge. ENT: Denies rhinorrhea, congestion, sore throat, or otalgia. CARDIOVASCULAR: Denies chest pain, palpitations, or edema. RESPIRATORY: Denies cough or dyspnea. GASTROINTESTINAL: Denies abdominal pain, nausea, vomiting, or diarrhea. GENITOURINARY: Denies dysuria or hematuria. SKIN: Denies rash or itching. MUSCULOSKELETAL: See HPI NEUROLOGIC: Denies headache, numbness, or weakness. PSYCHIATRIC: Denies anxiety or depression. [facility] Past Medical History Medical History Scoliosis Family History Family History Father Acute myocardial infarction Grandparent Diabetes mellitus Social History Social History Smoking status: Never smoker Substance use: never Lack of Transportation: No Lack of Food: Never True Current Housing: I Have Housing Concerned About Future Housing: No Difficulty Paying Gas/Electric Bills: No Difficulty Paying for Meds: No Currently Unemployed: No Education: Bachelor's Degree Difficulty w/ Childcare or Family Care: No Spiritual care concerns: No Exam Narrative: GENERAL: Well-appearing, well-nourished, and in no acute distress. HEAD: Normocephalic, atraumatic. EYES: PERRLA and EOMI. ENT: Nares clear, no rhinorrhea or epistaxis. Mucous membranes moist. NECK: Supple. no midline cervical spinous tenderness, step-offs or deformities. BACK: No thoracolumbar spinous tenderness, step-offs or deformities. Tenderness to the left lumbar paraspinous muscles. No overlying skin changes, rash, erythema, fluctuation or induration. Negative straight leg raise bilaterally. Sensation intact in lower extremities. No saddle anesthesia. Knee flexion, extension, dorsiflexion and plantar flexion , EHL strength 5/5. DP pulses 2+. CHEST: Clear to auscultation. No respiratory distress. HEART: Regular rate and rhythm. No murmur heard. Normal peripheral pulses. ABDOMEN: Soft, nontender, nondistended, normal active bowel sounds. EXTREMITIES: Normal range of motion. No edema. SKIN: Warm, dry, no rash. NEURO: No focal deficits. Alert and oriented x3 Course Vital Signs Vital signs: Vital Signs Temperature 98.3 F 08/07/23 19:45 Pulse Rate 102 H 08/07/23 19:45 Respiratory Rate 16 08/07/23 19:45 Blood Pressure 108/73 08/07/23 19:45 Pulse Oximetry 100 08/07/23 19:45 Oxygen Delivery Room Air 08/07/23 19:45 Temperature 98.3 F 08/07/23 19:45 Pulse Rate 74 08/07/23 21:16 Respiratory Rate 14
[2023-08-07 20:53] LABS: Appearance Urine Clear (Clear); Bilirubin Urine Negative (Negative); Blood Urine Negative (Negative); Color Urine Yellow (Yellow); Glucose Urine UA Negative (Negative); Ketones Urine Trace mg/dL (Negative); Leukocyte Esterase Ur Negative LEU/UL (Negative); Nitrate Urine Negative (Negative); Protein Urine Negative (Negative); Specific Grav Ur 1.026 (1.001-1.035); Urobilinogen Urine 0.2 mg/dL (<2.0); pH Urine 7.5 (5.0-9.0)
[2023-08-07 21:10] LABS: Add Urine Microscopic? NO
[2023-08-07] MEDS: ACETAMINOPHEN 500 MG TABLET 1000 MG PO (22:09)
[2023-08-07] MEDS: LIDOCAINE 5% PATCH 1 PATCH TRANSDERM (22:09)
[2023-08-07] MEDS: KETOROLAC 30 MG/ML VIAL (*BKC) IM (22:09)
[2023-08-07] MEDS: CYCLOBENZAPRINE HCL 10 MG TABLET PO (22:28)
== END 2023-08-07 23:00 | disposition home or self-care (01) ==
PROVIDERS: Emergency Provider Physician Assistant; PCP Physician Assistant
DX: S39.012A Strain of muscle, fascia and tendon of lower back, initial encounter (principal); X50.9XXA Other and unspecified overexertion or strenuous movements or postures, initial encounter
CPT/HCPCS: 81003; 81025; 96372; 99283; A9270; J1885

== ENCOUNTER 2023-10-27 10:43 | Emergency (ER) | payer OTHER, SELFPAY | END 2023-10-27 11:11 | disposition home or self-care (01) | PROVIDERS: Emergency Provider Nurse Practitioner | DX: J06.9 Acute upper respiratory infection, unspecified (principal); Z20.822 Contact with and (suspected) exposure to COVID-19 | CPT/HCPCS: 87426; 87804; 99213; G0463 ==

== ENCOUNTER 2023-11-25 13:24 | Outpatient (RCR) | payer OTHER, SELFPAY ==
--- NOTE | 2023-11-25 14:25 | OPREHPOC ---
Outpatient Therapy Plan of Care This is a Multidisciplinary Plan of Care that may contain components documented by all disciplines (PT, OT, and ST.) PT Problem 1 PT Problem #1 Knowledge Deficit PT Goal 1 Goal * indep with HEP * use correct posture with exercises PT Problem 2 PT Problem #2 Pain PT Goal 1 Goal 1* pt report pain at worst of 3/10 2* self assessment Oswestry rating of 18% limitation in activity level 3* pt not report any issues with taking a deep breath PT Problem 3 PT Problem #3 Impaired Functional Mobility PT Goal 1 Goal improve mobility of trunk to increase ability to care for herself and children: pt not report an increase in pain with 3 reps: 1* standing trunk rotation to R 2* standing R shoulder flexion 3* pt report sitting tolerance of 45 minutes
--- NOTE | 2023-11-25 14:25 | PTOPEVAL1 ---
Assessment and note entered by Lovely Garcia, PT Evaluation Information Assessment Status Evaluation Diagnosis scoliosis Onset Sep 2023 Subjective Information was having problems with lying on her R side; in Sep- was ill, with bad cold/flu and coughed a lot; is , due May 2024; have had PT in the past in [facility] when she was , prior to having baby, worked on exercises and alignment of back; had baby Apr 2023; is not doing any of the exercises from previous PT; Reported Pain Level Pain Score Self Report Additional Pain Score Comments pain range in the past week 0-5/10; R lateral & anterio trunk and lower ribs increase pain: lifting, lying on R side,twist trunk, sit 30 min, deep breaths hurt at side and rib cage; decrease pain: sit/rest, initially with pain onset- used ice- helped a little, not used lately; walking and sleeping are OK; Assessment PT Clinical Summary Azeb has the diagnosis of scoliosis. Oswestry self assessment rating of 28% limitation in activity level. Reports limited sitting, lifting, trunk movements and lying on her R side. She is active, with 3 young children and is , due to May. She reports increase in pain after having a bad cold/flu and coughing more. And that this pain is different than her usual back pain--R lower ribs hurt. It has gotten better but still bothers her. With the evaluation: spasms and tenderness over R lower thoracic paraspinals, lateral and anterior lower ribs; in standing she has R shoulder and trunk with forward rotation; pain is increased with standing trunk extension and rotation to R & R shoulder flexion. Skilled PT services are indicated for treatment of R upper quadrant--thoracic spine and ribs: modalities to decrease pain and spasms, therapeutic exercises to increase flexibility of trunk and stability to spine, with education for HEP and posture.
--- NOTE | 2023-12-06 16:39 | PCPTNOTE ---
No show for today's appointment.
--- NOTE | 2023-12-23 10:21 | PTOPDC ---
Assessment and note entered by Lovely Garcia, PT Discharge Information Assessment Status Discharge - Pt Not Present Diagnosis scoliosis Onset Sep 2023 Assessment PT Clinical Summary Azeb received the PT evaluation on November 24. She called and canceled her PT appointments, stated she was going to go to another facility for treatment. Discharge PT per pt request. The goals were not addressed. Plan of Care PT Services Indicated No
== END 2023-12-23 12:17 | disposition home or self-care (01) ==
LOC: ANHPT 13:24
PROVIDERS: PCP Physician Assistant; Visit Provider Physician Assistant
DX: M41.9 Scoliosis, unspecified (principal)
CPT/HCPCS: 97110; 97161; 97530; 99199

== ENCOUNTER 2024-06-04 07:51 | Outpatient (CLI) | payer OTHER, SELFPAY ==
[2024-06-04 08:15] LABS: Hematocrit 36.5 % (37.0-47.0); Hemoglobin 11.5 g/dL (12.0-15.0); Immature Platelet Fraction Pct 12.8 % (0.9-11.2); Mean Corpuscular HGB Conc 31.5 g/dl (32-36); Mean Corpuscular Hemoglobin 28.3 pg (26-34); Mean Corpuscular Volume 89.9 fl (80-100); Mean Platelet Volume 12.4 fl (7.4-10.4); Platelet Count Result 131 k/mm3 (150-375); Red Blood Count 4.06 M/mm3 (4.2-5.4); Red Cell Distribution Width 15.2 % (11.5-14.5); White Blood Count 5.2 K/mm3 (4.5-10.0)
[2024-06-04 09:01] LABS: Rapid Plasma Reagin Non-Reactive (NonReactive)
[2024-06-04 09:04] LABS: HIV 1/2 Ab P24 Ag Result Negative (Negative)
== END 2024-06-04 07:52 | disposition home or self-care (01) ==
PROVIDERS: PCP Physician Assistant; Visit Provider Obstetrics & Gynecology
DX: Z01.812 Encounter for preprocedural laboratory examination (principal)
CPT/HCPCS: 36415; 85027; 85055; 86592; 86703; 86850; 86900; 86901; G0432

== ENCOUNTER 2024-06-05 05:35 | Inpatient (IN) | payer OTHER, SELFPAY ==
[2024-06-05] VITALS (58 sets, daily range): BP systolic 99–115; BP diastolic 60–77; PULSE 52–108; RESP 16–21; TEMP 36.4–36.8; O2SAT 96–100; BMI 29.3
[2024-06-05] MEDS: ACETAMINOPHEN 500 MG TABLET 1000 MG PO (06:17)
[2024-06-05] MEDS: LACTATED RINGERS 1,000 ML 125 ML IV CONT ×2 (06:18→07:19)
--- NOTE | 2024-06-05 06:26 | LDADM ---
This patient, Azeb Grace, was admitted to Labor/Delivery/Recovery 120 on 06/05/24 at 05:35. Plans for labor, pain management and were discussed with patient. Patient/family oriented to hospital policies and general routines including ID bracelet, bed and alarms, visiting hours, pain management, procedures, bathroom and other care routines, personal items, smoking policy, room service/diet and guest tray routines, security routines, and visiting hours. Patient/Family are encouraged to report perceived risks to care and to ask questions if they do not understand what they are told or what they should do. See OBIX for further documentation.
[2024-06-05] MEDS: ONDANSETRON INJ 4 MG/2 ML VIAL IV PUSH ×2 (07:19→11:04)
[2024-06-05] MEDS: FAMOTIDINE 20 MG/2 ML VIAL IV PUSH (07:19)
--- NOTE | 2024-06-05 07:27 | P.PNAN_ITS ---
Anes - Initial Pre Proc Eval Procedure: Operation Date: 06/05/24 07:30 Proposed Procedures p Repeat Section - Manny Adam MD Date/Time: 06/05/24 07:27 Surgeon: Manny Adam MD Pre Op Diagnosis: C/Section Patient Data Age: 29 Gender: F Height: 1.65 m Weight: 80 kg Last Vital Signs Pulse 84 06/05/24 07:01 BP 108/65 06/05/24 07:01 Pulse Ox 100 06/05/24 07:07 O2 Del Method Room Air 06/05/24 06:24 Allergies Allergy/AdvReac Type Severity Reaction Status Date / Time No Known Allergies Allergy Verified 05/18/24 14:33 Home Medications Medication Instructions Recorded Confirmed Type prenat.vits,jeffrey,[id number] 1 tablet PO DAILY 02/11/21 05/18/24 History Patient hx anesthesia problems: none Family hx anesthesia problems: none Results Review: All pre-operative results and documents have been reviewed as part of the pre- operative evaluation. PMFSH Past Medical History Medical History Scoliosis Family History Family History Father Acute myocardial infarction Grandparent Diabetes mellitus Mother Cancer Social History Social History Smoking status: Never smoker Second hand tobacco smoke exposure: No Substance use: never Do You Feel Safe in your Home?: Yes Lack of Transportation: No Lack of Food: Never True Current Housing: I Have Housing Concerned About Future Housing: No Difficulty Paying Gas/Electric Bills: No Difficulty Paying for Meds: No Currently Unemployed: No Education: Don't Know Difficulty w/ Childcare or Family Care: No Spiritual care concerns: No Anes - Eval Final PreProcedure Day of Procedure 06/05/24 07:27 Patient weight: normal Heart: regular rate and rhythm Lungs: clear to auscultation Airway: Mallampati scale class II Neurological: alert and oriented Last oral intake: >/= 8 hours ASA classification: II Emergent: no Anesthetic plan: proceed Anesthesia type and monitoring: regional spinal and standard monitoring Results Review: All pre-operative results and documents have been reviewed as part of the pre- operative evaluation. Pt w prev C section under spinal anesthetic without apparent complication. Plt 131. Informed Consent: The patient's anesthetic plan and its attendant risks and benefits were discussed with the patient/family/POA. Questions were solicited and answers provided to the satisfaction of the patient/family/POA.
--- NOTE | 2024-06-05 07:27 | PM.IMHP ---
H&P: HPI History of Present Illness Date/Time: 06/05/24 07:27 Chief Complaint: Term Narrative: 29-year-old multiparous female at term with previous . We agreed to perform repeat . The patient understands the details of the procedure. The procedure has been explained in detail. She understands the risks. She understands that injuries may occur that result in hospitalization, more surgery, and severe illness. She understands risk of hemorrhage and infection. She denies any chest pain or shortness of breath. She denies any nausea, vomiting, fever, chills. Review of Systems Review of Systems: All systems reviewed & are unremarkable except as noted in HPI and below Constitutional: Constitutional: Denies chills, Denies fatigue, Denies fever(s) and Denies weakness Eyes: Eyes: Denies blurry vision, Denies change in vision, Denies loss of peripheral vision, Denies loss of vision, Denies other visual disturbances and Denies eye pain ENT: Denies vertigo, Denies dizziness, Denies hearing loss, Denies mouth pain, Denies nasal obstruction, Denies neck mass and Denies neck pain Cardiovascular: Cardiovascular: Denies chest pain, Denies diaphoresis, Denies syncope, Denies leg edema and Denies dyspnea Respiratory: Respiratory: Denies chest congestion, Denies cough, Denies hemoptysis, Denies dyspnea and Denies wheezing Gastrointestinal: Gastrointestinal: Denies abdominal pain, Denies constipation, Denies diarrhea, Denies nausea and Denies vomiting Genitourinary: Genitourinary: Denies hematuria, Denies change in libido, Denies nocturia, Denies genital lesions, Denies flank pain and Denies urinary urgency Musculoskeletal: Musculoskeletal: Denies abnormal gait, Denies back pain, Denies myalgias, Denies arthralgias, Denies joint swelling, Denies muscle weakness and Denies neck pain Integumentary/Breasts: Skin/Breast: Denies swelling, Denies breast pain, Denies breast mass, Denies dry skin, Denies nipple discharge, Denies unusual bruising and Denies jaundice Neurologic: Denies Neuro-related abnormal movements, Denies Abnormal speech present, Denies abnormal gait, Denies behavioral changes, Denies confusion, Denies vertigo, Denies dizziness, Denies syncope, Denies loss of vision, Denies memory loss, Denies convulsions and Denies weakness Psychiatric: Psychiatric: Denies abnormal sleep pattern, Denies behavioral changes, Denies change in libido, Denies confusion, Denies depression, Denies anhedonia and Denies memory loss Endocrine: Endocrine: Reports no additional endocrine complaints, Denies change in libido and Denies fatigue Hematologic/Lymphatic: Hematologic/Lymphatic: Reports no additional hematologic/lymphatic complaints Allergic/Immunologic: Allergic/Immunologic: Reports no additional allergic/immunologic complaints and Denies wheezing PMFSH Past Medical History Medical History Scoliosis Family History Family History Father Acute myocardial infarction Grandparent Diabetes mellitus Mother Cancer Social History Social History Smoking status: Never smoker Second hand tobacco smoke exposure: No Substance use: never Do You Feel Safe in your Home?: Yes Lack of Transportation: No Lack of Food: Never True Current Housing: I Have Housing Concerned About Future Housing: No Difficulty Paying Gas/Electric Bills: No Difficulty Paying for Meds: No Currently Unemployed: No Education: Don't Know Difficulty w/ Childcare or Family Care: No Spiritual care concerns: No Meds Home Medications and Allergies Home Medications Medication Instructions Recorded Confirmed Type prenat.vits,jeffrey,[id number] 1 tablet PO DAILY 02/11/21 05/18/24 History Allergies Allergy/AdvReac Type Severity Reaction Status Ry
[2024-06-05] MEDS: ceFAZolin 2 GM/D5W 50 ML 2 GM/50 ML BAG IVPB (07:30)
--- NOTE | 2024-06-05 07:30 | WPDHPUPDATE1 ---
History and Physical Update Update Date/Time: 06/05/24 07:30 History and Physical has been reviewed, including an updated exam of the patient. There are NO changes in the patient's condition. Risks, benefits, and alternatives have been discussed and questions answered. Patient agrees to proceed with procedure.
--- NOTE | 2024-06-05 08:31 | W.PM.OBCSD ---
OB - Delivery Note Procedure Delivery date: 06/05/24 Pre-op diagnosis: Previous Delivery Post-op Diagnosis: Same Procedure Performed: Repeat Surgeon: Manny Adam MD Anesthesia type: Spinal Description of Procedure/Findings: The patient was taken the operating room.? She was prepped and draped in dorsal supine position with a leftward tilt.? This was done after spinal anesthetic was applied.? A low-transverse skin incision was made and carried down till of the fascia with the knife.? The fascial incision was made with the knife.? The fascial incision was extended laterally with Dupont scissors.? The fascia was tented upward superiorly and inferiorly the rectus muscles were dissected off bluntly.? The rectus muscles were the midline.? The preperitoneal fat and peritoneum were dissected open bluntly at the superior aspect of the rectus muscles.? The peritoneal incision was extended superior and inferior with good position of bladder.? The uterine incision was made with a scalpel down to the level of the amniotic cavity.? The amniotic cavity was entered bluntly.? The infant was delivered.? The cord was clamped and cut and the infant was handed off to waiting pediatric staff.? Cord bloods were obtained.? The placenta was removed manually.? The uterus was exteriorized.? The uterus was cleared of all clots, debris and membranes.? The uterus was closed in 0 Vicryl running lock fashion.? An imbricating over a was placed along the incision line as well.? The uterus was returned to the abdomen.? The gutters were cleared of all clots and debris.? The fascia was closed with 0 Vicryl running fashion.? The subcutaneous tissue was irrigated pinpoint bleeders were cauterized.? The skin was closed with subcuticular absorbable nicolas.? The skin incision line was covered with glue.? The patient tolerated the procedure well.? She has taken recovery room in stable condition.? Sponge lap and needle counts were correct x2.? Estimated Blood Loss: 200
[2024-06-05] MEDS: LIDOCAINE 5% PATCH 1 PATCH TRANSDERM (09:38)
[2024-06-05] MEDS: MORPHINE SULFATE INJ (*CRX) 10 MG/ML AMP 2 MG IV PUSH (10:26)
[2024-06-05] MEDS: OXYTOCIN 30 UNITS/NS 500 ML 30 UNITS/500 ML BAG 125 UNITS IV CONT (10:27)
--- NOTE | 2024-06-05 10:30 | PC.NURSE ---
Patient transferred to post room #291 via stretcher. Support person present. Oriented to unit, room, information board, rooming in, admission packet and security measures. Patient verbalizes understanding.
[2024-06-05] MEDS: KETOROLAC 15 MG/ML VIAL (*BKC) IV PUSH ×2 (12:30→19:30)
[2024-06-05] MEDS: ACETAMINOPHEN 325 MG TABLET 650 MG PO ×2 (12:31→19:30)
[2024-06-05] MEDS: SIMETHICONE 80 MG TAB.CHEW PO ×2 (12:31→16:47)
[2024-06-05] MEDS: DEXTROSE 5%/0.45% SOD CHL 1,000 ML 125 ML IV CONT (14:48)
[2024-06-05] MEDS: DOCUSATE SODIUM 100 MG CAPSULE PO (16:47)
[2024-06-06] MEDS: HYDROcodone/acetaminophen (*CRX) 10-325 MG TABLET 1 TAB PO ×2 (00:30→14:28)
[2024-06-06] MEDS: ACETAMINOPHEN 325 MG TABLET 650 MG PO ×4 (04:15→22:30)
[2024-06-06] MEDS: SIMETHICONE 80 MG TAB.CHEW PO ×6 (04:15→22:30)
[2024-06-06] MEDS: KETOROLAC 15 MG/ML VIAL (*BKC) IV PUSH ×2 (04:15→09:47)
[2024-06-06 04:44] LABS: Basophils Percent Auto 0.3 % (0.2-1.2); Eosinophils Percent Auto 0.6 % (0-4.4); Hematocrit 33.3 % (37.0-47.0); Hemoglobin 11.1 g/dL (12.0-15.0); Immature Granulocyte Absolute 0.03 K/mm3 (0.00-0.031); Immature Granulocyte Percent A 0.4 % (0-0.5); Lymphocytes Absolute Auto 1.35 K/mm3 (0.9-3.2); Lymphocytes Percent Auto 19.9 % (18.3-44.2); Mean Corpuscular HGB Conc 33.3 g/dl (32-36); Mean Corpuscular Hemoglobin 29.8 pg (26-34); Mean Corpuscular Volume 89.3 fl (80-100); Mean Platelet Volume 12.6 fl (7.4-10.4); Monocytes Absolute Auto 0.5 K/mm3 (0.1-0.6); Monocytes Percent Auto 7.7 % (2.6-8.5); Neutrophils Absolute Auto 4.8 K/mm3 (1.3-6.7); Neutrophils Percent Auto 71.1 % (45.5-73.1); Platelet Count Result 105 k/mm3 (150-375); Red Blood Count 3.73 M/mm3 (4.2-5.4); Red Cell Distribution Width 15.2 % (11.5-14.5); White Blood Count 6.8 K/mm3 (4.5-10.0)
[2024-06-06] MEDS: HYDROcodone/acetaminophen (*CRX) 5-325 MG TABLET 1 TAB PO ×2 (06:35→09:50)
[2024-06-06] MEDS: DOCUSATE SODIUM 100 MG CAPSULE PO ×2 (06:36→15:59)
[2024-06-06] MEDS: MULTIVIT/MIN/PREN/FOL AC/IRON TABLET 1 TAB PO (06:36)
--- NOTE | 2024-06-06 07:00 | PM.OBPNVD ---
OB - PN: Subj Subjective Date/time seen: 06/06/24 07:00 Interval history: pp day 1 doing well voiding w/o difficulty flatus present OB - PN: Obj Data Labs 06/06/24 04:21 Labs: Laboratory Results - last 24 hr 06/06/24 04:21 WBC 6.8 RBC 3.73 L Hgb 11.1 L Hct 33.3 L MCV 89.3 MCH 29.8 D MCHC 33.3 RDW 15.2 H Plt Count 105 L MPV 12.6 H Immature Gran % (Auto) 0.4 Neut % (Auto) 71.1 Lymph % (Auto) 19.9 [place] % (Auto) 7.7 Eos % (Auto) 0.6 Baso % (Auto) 0.3 Lymph # (Auto) 1.35 [place] # (Auto) 0.5 Eos # (Auto) 0.0 Baso # (Auto) 0.0 Abs Immat Gran (auto) 0.03 Absolute Neuts (auto) 4.8 Absolute Nucleated RBC 0.000 Nucleated RBC % 0.0 OB - PN A/P Plan day: 1 Plan: routine care Time Spent With Patient Time: Total time spent is greater than 50% in coordination of care (as documented) at patient's floor/unit and/or counseling patient: Review of Systems Review of Systems: All systems reviewed & are unremarkable except as noted in HPI and below Exam Const: General: cooperative and healthy appearing Chest: Chest palpation & inspection: normal inspection of the chest Resp: Effort & Inspection: normal respiratory effort Cardio: Rate: regular rate GI: Other: incision CDI Back/Spine/Pelvis: Back: no CVA tenderness Skin: General skin exam: normal color
[2024-06-06 08:50] VITALS: BP 103/53; PULSE 78; RESP 16; TEMP 36.6; O2SAT 99
--- NOTE | 2024-06-06 13:51 | WPDANLDNPN2 ---
Anes-Prog Note L&D-Neuraxial Date/Time: 06/06/24 13:51 Neuraxial medications: intrathecal PF morphine Opiod-related complaints: none Patient feedback: Patient satisfied with post-operative pain management.
--- NOTE | 2024-06-06 13:51 | WPDANLDPN2 ---
Anes-Prog Note L&D Date/Time: 06/06/24 13:51 Comfortable throughout: section Neuraxial method: spinal Epidural/Spinal procedure site: clean & non-tender Neuro status: Neuro function grossly intact. Cardiovascular status: normal Respiratory status: normal Airway patency: baseline Mental status: baseline Post-Op hydration status: normal Vital Signs: Last Vital Signs Temp 36.6 C 06/06/24 08:50 Pulse 78 06/06/24 08:50 Resp 16 06/06/24 08:50 BP 103/53 L 06/06/24 08:50 Pulse Ox 99 06/06/24 08:50 O2 Del Method Room Air 06/06/24 08:00 Pain score (VAS): 2 I/O: Intake & Output 06/05/24 06/06/24 06/06/24 23:59 07:59 15:59 Intake Total 240 200 Output Total 2500 800 Balance -2260 -800 200 Patient feedback: Patient satisfied with anesthetic care.
[2024-06-06] MEDS: LIDOCAINE 5% PATCH 1 PATCH TRANSDERM (14:28)
[2024-06-06] MEDS: IBUPROFEN 600 MG TABLET PO ×2 (15:59→22:30)
--- NOTE | 2024-06-06 17:38 | PC.NURSE ---
2100. Consulted with mother concerning needs and she shared her ability to independently latch infant optimally without pain. Mother is feeding appropriately for growth of infant and understands stimulating to eat if needed. has had appropriate feedings in the last 24 hours meets the outcomes for weight, output, blood sugar and jaundice at this time. Reinforced understanding of milk production, transition of milk, signs of adequate intake, transition of stool, prevention/relief of engorgement, plugged ducts, mastitis, responsive watching for feeding cues, the different methods of stimulating to breastfeed 1-3 hours after the start of the last feeding, community resources, and when to call a provider using the resource of the feeding sheet along with the mom and baby guide. Mother voiced understanding of the information shared, is confident to continue effectively her at home, when to call for assistance, denies any additional assistance or education at this time. Reported to the Primary RN.
[2024-06-06 20:54] VITALS: BP 106/70; PULSE 79; RESP 16; TEMP 37.1; O2SAT 99
[2024-06-07] MEDS: SIMETHICONE 80 MG TAB.CHEW PO ×5 (00:37→11:41)
[2024-06-07] MEDS: IBUPROFEN 600 MG TABLET PO ×2 (05:06→11:41)
[2024-06-07] MEDS: ACETAMINOPHEN 325 MG TABLET 650 MG PO ×2 (05:06→11:41)
--- NOTE | 2024-06-07 07:52 | PM.OBPNVD ---
OB - PN: Subj Subjective Date/time seen: 06/07/24 07:52 Interval history: pp day 1 doing well voiding w/o difficulty flatus present Patient comments: no complaints, pain well controlled, incisional pain, tolerating diet and flatus present OB - PN: Obj Data Labs 06/06/24 04:21 OB - PN A/P Plan day: 2 Plan: routine care Comments: POD#2 LTCS - no problems, Time Spent With Patient Time: Total time spent is greater than 50% in coordination of care (as documented) at patient's floor/unit and/or counseling patient: Exam Const: General: comfortable, no acute distress and alert Resp: Effort & Inspection: normal respiratory effort Auscultation: no crackles, no rales and no rhonchi Cardio: Rate: regular rate Heart sounds: no click, no murmurs and no rubs GI: Inspection: non-distended Auscultation: normal bowel sounds Other: Incision - CDI Extrem: General: normal to inspection, no pedal edema and no calf tenderness
--- NOTE | 2024-06-07 07:53 | PM.OBDSVD ---
DS: Admitting Diagnosis Discharge Date 06/07/24 Admitting Diagnosis term DS: Discharge Diagnosis Discharge Diagnosis (1) Post-op pain: Code(s): G89.18 - Other acute postprocedural pain Status: Acute OB - DS: Summary OB Procedures : None OB Procedures Intrapartum: Spontaneous Vag Delivery OB Procedures: : None Peripartum Data Procedures: Procedures Operation Date: 06/05/24 07:30 Actual Procedure Side Surgeon p Repeat Section Not Applicable Manny Adam MD Time Spent with Patient Time attestation: Total time spent providing and/or coordinating discharge services: Discharge Plan Discharge Discharging Clinician: Manny Adam Patient Disposition: Home, Self-Care Activity: pelvic rest Diet: regular Patient Instructions: Antibiotic Form Stand Alone Forms: General Discharge Information Follow-up/Referrals: Manny Adam MD [Physician] - Discharge Medications: New oxycodone-acetaminophen 5-325 mg tablet 1 tablet PO Q4H PRN (Reason: pain) Qty: 25 0RF Continued prenat.vits,jeffrey,[id number] Tablet 1 tablet PO DAILY Date of admission: 06/05/24 05:35 Primary Care Provider: MamadouMay Admitting Provider: Manny Adam Attending physician on admission: Manny Adam Condition: Stable
[2024-06-07 08:10] VITALS: BP 129/70; PULSE 96; RESP 16; TEMP 36.8; O2SAT 100
[2024-06-07] MEDS: HYDROcodone/acetaminophen (*CRX) 10-325 MG TABLET 1 TAB PO (08:27)
[2024-06-07] MEDS: MULTIVIT/MIN/PREN/FOL AC/IRON TABLET 1 TAB PO (08:27)
[2024-06-07] MEDS: DOCUSATE SODIUM 100 MG CAPSULE PO (08:27)
--- NOTE | 2024-06-07 11:05 | PC.NURSE ---
Mother verbalizes she is able to independently latch with appropriate positioning and alignment. She denies any nipple discomfort and is responsively . Infant is currently meeting outcomes for weight, output, jaundice, blood sugar and feeding frequencies of 8-12 times in 24 hours. Mother declines any additional assistance or education at this time. Mother is encouraged to call for assistance if her infant doesn?t latch, pain with latching, questions or concerns. Mother voiced understanding of information shared along with the mom/baby guide for an additional resource. Reported to the Primary RN.
[2024-06-08 10:29] VITALS: BP 116/68; PULSE 89; RESP 18; TEMP 36.9; O2SAT 100
== END 2024-06-07 12:25 | disposition home or self-care (01) | DRG 540 ==
LOC: ANHLDR 05:38 → ANHOB2 10:46
PROVIDERS: Admitting Provider Obstetrics & Gynecology; PCP Physician Assistant; Visit Provider Obstetrics & Gynecology
PROC: 10D00Z1 Extraction of Products of Conception, Low, Open Approach (ICD-10-PCS; CPT 59514; principal; 2024-06-05 07:30)
DX: O34.219 Maternal care for unspecified type scar from previous cesarean delivery (principal); Z3A.39 39 weeks gestation of pregnancy; Z37.0 Single live birth
CPT/HCPCS: 36415; 85025; 85027; 85055; 86592; 86703; 86850; 86900; 86901; A9270; G0432; J0690; J1885; J2270; J2274; J2371; J2405; J2590; J7120

== ENCOUNTER 2024-09-09 15:13 | Emergency (ER) | payer OTHER, SELFPAY ==
[2024-09-09 15:25] VITALS: BP 115/62; PULSE 83; RESP 16; TEMP 37.2; O2SAT 97
--- NOTE | 2024-09-09 15:56 | ED.URI ---
HPI - URI/Sore Throat General Chief Complaint: Upper Respiratory Infection Stated Complaint: headache,congestion Time Seen by Provider: 09/09/24 15:57 Source: patient, RN notes reviewed and old records reviewed Mode of arrival: ambulatory Limitations: no limitations History of Present Illness HPI Narrative: Patient who is 3 months presents with complaints headache, body aches. She reports that she had an abnormal. With severe cramping a couple of days ago. She is no longer bleeding, but she is very pale. She reports that she is typically not this pale. She denies any dizziness. She does report headache. Patient is breast-feeding her . She denies any fever, chills, sweats. She has been taking Tylenol for her symptoms with no relief Related Data Home Medications ?Medication ?Instructions ?Recorded ?Confirmed ?Last Taken ?Type prenat.vits,jeffrey,nim-[id number] 1 tablet PO DAILY 02/11/21 09/09/24 1 Day Ago History ~05/17/24 Allergies Allergy/AdvReac Type Severity Reaction Status Date / Time No Known Allergies Allergy Verified 09/09/24 15:20 Review of Systems Review of Systems: All systems reviewed & are unremarkable except as noted in HPI and below Constitutional: Constitutional: Reports no additional constitutional complaints, Reports body ache(s) and Reports lethargy ENT: Reports system reviewed and no additional complaints, except as documented, Reports headache(s) and Reports sore throat Cardiovascular: Cardiovascular: Reports no additional cardiovascular complaints Respiratory: Respiratory: Reports no additional respiratory complaints Gastrointestinal: Gastrointestinal: Reports no additional gastrointestinal complaints [facility] Past Medical History Medical History Scoliosis Family History Family History Father Acute myocardial infarction Grandparent Diabetes mellitus Mother Cancer Social History Social History Smoking status: Never smoker Second hand tobacco smoke exposure: No Substance use: never Do You Feel Safe in your Home?: Yes Lack of Transportation: No Lack of Food: Never True Current Housing: I Have Housing Concerned About Future Housing: No Difficulty Paying Gas/Electric Bills: No Difficulty Paying for Meds: No Currently Unemployed: No Education: Don't Know Difficulty w/ Childcare or Family Care: No Spiritual care concerns: No Comments At the time of my signature, I reviewed and agree with the nursing past medical, surgical, social, and family history. There is no relevant family history pertinent to the patient complaint. Exam Const: General: cooperative, no acute distress, alert, awake and tired appearing Orientation/consciousness: oriented to person, oriented to place and oriented to time HENMT: Head: normal to inspection Ears: TM's normal bilaterally Mouth: Yes moist mucous membranes Throat: posterior oropharynx abnormal erythema Resp: Effort & Inspection: normal respiratory effort and able to speak in complete sentences Auscultation: clear to auscultation bilaterally, no crackles, no rales, no rhonchi and no wheezes Cardio: Palpation: normal PMI Rate: regular rate Rhythm: regular rhythm Heart sounds: S1 normal heart sound present and S2 normal heart sound present Neuro: General: oriented to person, oriented to place and oriented to time Cranial nerves: Yes CN's II-XII intact bilaterally Psych: Appearance: grossly normal Thought process: Normal thought process present Insight: Good insight present (Psych) Judgement: Good judgement present (Psych) Course Course Level of Care: Express Care Visit Vital Signs Vital signs: Vital Signs Temperature 99.0 F 09/09/24 15:25 Pulse Rate 83 09/09/24 15:25 Respiratory Rate 16 09/09/24 15:25 Blood Pressure 115/62 09/09/24 15:25 Pulse Oximetry 97 09/09/24 15:25 Oxygen Delivery Room Air 09/09/24 15:25 Temperature 99.0 F 09/09/24 15:25 Pulse Rate 83 09/09/24 15:25 Respiratory Rate 16 09/09/24 15:25 Blood Pressure 115/62 09/09/24 15:25 Pulse Oximetry 97 09/09/24 15:25 Oxygen Delivery Room Air 09/09/24 15:25 Reviewed MDM - URI/Sore Throat MDM Narrative Medical decision making narrative: Negative test. Negative COVID, negative flu, negative strep. Besides being pale and appearing tired, patient with normal physical exam. She is advised to follow with primary care provider in OBGYN. Emergency department immediately for new or worse symptoms. Discharge instructions reviewed with patient, as well as provided in writing per nursing staff. The instructions also include specific and strict return/GO TO THE ER as well as f/u information. All questions have been answered, and the patient deny any further questions with discharge and discharge plan. Some parts of this dictation were generated by voice recognition software and may contain typographical and/or grammatical inaccuracies. Differential Diagnosis Differential diagnosis: Likely upper respiratory infection, otitis media, viral infection, bronchitis, influenza and pharyngitis Medical Records Attestation: I reviewed the patient's medical records. Lab Data Attestation: I reviewed the patient's lab results. Discharge Plan Discharge Clinical Impression: Viral infection Patient Disposition: Home, Self-Care Condition: Stable Instructions: Antibiotic Form, Cold Symptoms (ED) Additional Instructions: Follow-up with OBGYN and primary care provider without fail. Emergency department for any new or worsening symptoms Patient Language: Kazakh Prescriptions: No Action prenat.vits,jeffrey,[id number] Tablet 1 tablet PO DAILY Follow-up/Referrals: Dolly,ARLENE Olvera [Primary Care Provider] - 1 Day Time of Disposition: 16:16
[2024-09-09 16:04] LABS: EDCOVIDSCREEN Negative (Negative); EDINFLUASCREEN Negative (Negative); EDINFLUBSCREEN Negative (Negative)
[2024-09-09 16:12] LABS: BEDSIDEPREGUCG Negative (Negative); EDSTREPNEGPOS1 Negative (Negative)
== END 2024-09-09 16:18 | disposition home or self-care (01) ==
PROVIDERS: Emergency Provider Nurse Practitioner Family; PCP Physician Assistant
DX: B34.9 Viral infection, unspecified (principal); Z20.822 Contact with and (suspected) exposure to COVID-19
CPT/HCPCS: 81025; 87081; 87426; 87804; 87880; 99213; G0463

== ENCOUNTER 2024-09-10 10:09 | Outpatient (CLI) | payer OTHER, SELFPAY ==
[2024-09-10 11:05] LABS: Beta HCG Quantitative < 2.39 mIU/ML
== END 2024-09-10 10:10 | disposition home or self-care (01) ==
LOC: ANHLAB 10:12
PROVIDERS: PCP Physician Assistant; Visit Provider Obstetrics & Gynecology
DX: N91.2 Amenorrhea, unspecified (principal)
CPT/HCPCS: 36415; 84702

== ENCOUNTER 2025-01-28 10:19 | Emergency (ER) | payer OTHER, SELFPAY ==
--- NOTE | ~2025-01-28 | XR_ITS ---
XR foot RT min 3V Ordering provider: Destinee Richard APRN History: . injury, pain to 4th digit. . Comparison: None. FINDINGS: BONES: No acute fracture or dislocation. JOINT SPACES: Normal. No tarsal coalition. SOFT TISSUES: Normal. IMPRESSION: No acute osseous abnormality of the right foot. Reviewed, dictated and finalized at location A.
[2025-01-28 10:31] VITALS: BP 109/72; PULSE 90; RESP 16; TEMP 36.2; O2SAT 99
--- NOTE | 2025-01-28 10:48 | ED_ITS ---
HPI - URI/Sore Throat General Chief Complaint: Upper Respiratory Infection Stated Complaint: Cold Symptoms and hurt toe Source: patient Mode of arrival: ambulatory Limitations: no limitations History of Present Illness HPI Narrative: Patient is a 29 year old female who presents to the clinic with complaints of sinus congestion and a cough for 2 weeks. She has not been taking anything over the counter. Denies any shortness of breath, difficulty swallowing, fever, diarrhea, or nausea. She also is here for right 4th toe pain for a week. She states that she hit her toe off of a wall while walking. Denies any numbness, tingling, or radiation of pain. Related Data Allergies Allergy/AdvReac Type Severity Reaction Status Date / Time No Known Allergies Allergy Verified 01/28/25 10:40 Review of Systems Review of Systems: CONSTITUTIONAL: Denies body aches, fever, chills, or sweats. EYES: Denies visual changes, redness, or discharge. ENT: Denies rhinorrhea, sore throat, or otalgia. Reports congestion. CARDIOVASCULAR: Denies chest pain, palpitations, or edema. RESPIRATORY: Reports cough or dyspnea. GASTROINTESTINAL: Denies abdominal pain, nausea, vomiting, or diarrhea. GENITOURINARY: Denies dysuria or hematuria. SKIN: Denies rash, itching, or wounds. MUSCULOSKELETAL: Denies back pain, joint pain, or myalgia. Reports right fourth toe pain. NEUROLOGIC: Denies headache, numbness, tingling, or weakness. PSYCH: Denies depression or anxiety. All systems reviewed & are unremarkable except as noted in HPI and below PMFSH Past Medical History Medical History Scoliosis Family History Family History Father Acute myocardial infarction Grandparent Diabetes mellitus Mother Cancer Social History Social History Smoking status: Never smoker Second hand tobacco smoke exposure: No Substance use: never Do You Feel Safe in your Home?: Yes Lack of Transportation: No Lack of Food: Never True Current Housing: I Have Housing Concerned About Future Housing: No Difficulty Paying Gas/Electric Bills: No Difficulty Paying for Meds: No Currently Unemployed: No Education: Don't Know Difficulty w/ Childcare or Family Care: No Spiritual care concerns: No Comments At time of signature, I have reviewed and agree with nursing past medical, surgical, social and family history unless otherwise noted. Please see nursing chart for further information. There is no relevant family history pertinent to the presenting complaint. Exam Narrative: GENERAL: Well-appearing, well-nourished, and in no acute distress. EYES: EOMI. No redness or drainage. Conjunctivae normal. ENT: Mucous membranes pink and moist. Nares clear. TMs normal bilaterally. Throat Erythema without tonsillar exudate, uvula midline. Nasal congestion noted. NECK: Normal AROM. Supple. No lymphadenopathy. CHEST: No respiratory distress. Clear to auscultation. HEART: Regular rate and rhythm. No murmur appreciated. Normal peripheral pulses. ABDOMEN: Soft, nontender, nondistended, normal active bowel sounds. SKIN: Warm, dry, no rash. Capillary refill normal. Normal skin turgor. NEURO: No focal deficits. Alert and oriented x3. Gait steady. MUSC: Edema noted to right 4th toe. No erythema. No Ecchymosis. PSYCH: Normal affect. No signs of depression or anxiety. Course Course Level of Care: Express Care Visit Vital Signs Vital signs: Vital Signs Temperature 97.1 F L 01/28/25 10:31 Pulse Rate 90 01/28/25 10:31 Respiratory Rate 16 01/28/25 10:31 Blood Pressure 109/72 01/28/25 10:31 Pulse Oximetry 99 01/28/25 10:31 Temperature 97.1 F L 01/28/25 10:31 Pulse Rate 90 01/28/25 10:31 Respiratory Rate 16 01/28/25 10:31 Blood Pressure 109/72 01/28/25 10:31 Pulse Oximetry 99 01/28/25 10:31 MDM - URI/Sore Throat MDM Narrative Medical decision making narrative: Discussed physical exam findings and xray. Advised supportive measures and signs/symptoms to go to the ER. Pt is appropriate for outpt treatment and follow up. Differential Diagnosis Differential diagnosis: Likely upper respiratory infection, sinusitis, viral infection and other (fracture to right fourth toe. ) Imaging Data Radiologist's impression: ITS Impressions Foot X-Ray 01/28/25 11:08 IMPRESSION: No acute osseous abnormality of the right foot. Critical Care Time Critical Care Time Critical Care Time: No Discharge Plan Discharge Clinical Impression: Upper respiratory infection Qualifiers: URI type: unspecified URI Qualified Code(s): J06.9 - Acute upper respiratory infection, unspecified Patient Disposition: Home Condition: Stable Instructions: Antibiotic Form, Upper Respiratory Infection (DC) Additional Instructions: Recommend Flonase spray twice a day for 7 days. Claritin daily. Tylenol 1000mg every 8 hours as needed for pain Symptomatic treatment includes: rest, fluids, and increase humidity of the air at home. Follow up with your primary care provider in 1 week. Go to the ER for worsening symptoms or concerns. Patient Language: Maori Prescriptions: New amoxicillin-pot clavulanate 875-125 mg tablet 1 tablet PO Q12H 7 Days Qty: 14 0RF Follow-up/Referrals: Dolly,ARLENE Olvera [Primary Care Provider] - Time of Disposition: 11:19
[2025-01-28 11:23] LABS: EDSTREPNEGPOS1 Negative (Negative)
== END 2025-01-28 11:25 | disposition home or self-care (01) ==
PROVIDERS: PCP Physician Assistant
DX: J06.9 Acute upper respiratory infection, unspecified (principal); M79.671 Pain in right foot; M41.9 Scoliosis, unspecified
CPT/HCPCS: 73630; 87081; 87880; 99213; G0463

== ENCOUNTER 2025-08-23 10:34 | Observation (INO) | payer OTHER, SELFPAY ==
--- NOTE | 2025-08-23 11:32 | PC.NURSE ---
1121--Report to Dr. Adam re: nonreactive NST at this time. Requesting BPP and cord dopplers. states they did BPP and dopplers in office today and they were WNL. Orders to continue to monitor at this time and he will come see pt.
[2025-08-23 12:54] VITALS: BMI 31.5
--- NOTE | 2025-08-23 12:54 | LDADM ---
This patient, Azeb Grace, was admitted to OB Post 117 on 08/23/25 at 10:34. Plans for labor, pain management and were discussed with patient. Patient/family oriented to hospital policies and general routines including ID bracelet, bed and alarms, visiting hours, pain management, procedures, bathroom and other care routines, personal items, smoking policy, room service/diet and guest tray routines, infant security routines, and visiting hours. Patient/Family are encouraged to report perceived risks to care and to ask questions if they do not understand what they are told or what they should do. See OBIX for further documentation.
--- NOTE | 2025-09-22 21:16 | PM.OBTRLD ---
OB - Triage/Final Diagnosis Visit Information Comments/Additional reasons for admission: I have assessed the risk for this patient, Azeb Grace, and determined that she would benefit from observation care. Final Diagnosis (1) Non-reassuring status, delivered, current hospitalization: Code(s): O75.89 - Other specified complications of labor and delivery Status: Acute
== END 2025-08-23 12:50 | disposition home or self-care (01) ==
LOC: ANHOBOP 10:42 → ANHOBPP 12:48
PROVIDERS: Admitting Provider Obstetrics & Gynecology; PCP Physician Assistant; Visit Provider Obstetrics & Gynecology
DX: O75.89 Other specified complications of labor and delivery (principal); Z3A.33 33 weeks gestation of pregnancy
CPT/HCPCS: G0378; G0379